=== PATIENT | male | born 1935 | race Caucasian/White ===

== ENCOUNTER 2023-05-10 12:16 | Outpatient (OUT) | payer MEDICARE, OTHER, SELFPAY ==
--- NOTE | 2023-05-10 12:29 | XR_ITS ---
[address] [address] Patient Name: GIOVANNY ANGULO MRN: [id number] date: 1935 Sex: M Assigned Patient Location: RAD Current Patient Location: [facility] Accession/Order Number: [id number] Exam Date: 05/10/2023 12:32 Report Date: 05/10/2023 15:00 At the request of: DAVID CARR Procedure: XR knee LT 4V EXAM: XR knee LT 4V HISTORY: Left knee pain M25.562 COMPARISON: None. 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 No acute fracture or dislocation. Mild soft tissue swelling. XR/XR knee LT 4V IMPRESSION: Moderate degenerative changes as above. Electronically authenticated by: ELIZABETH COLORADO Date: 05/10/2023 15:00
== END 2023-05-10 12:17 | disposition home or self-care (01) ==
LOC: RAD 12:22
PROVIDERS: PCP Family Medicine; Visit Provider Nurse Practitioner
DX: M25.562 Pain in left knee (principal)
CPT/HCPCS: 73564

== ENCOUNTER 2023-10-02 15:48 | Emergency (ER) | payer MEDICARE, OTHER, SELFPAY ==
[2023-10-02 16:03] VITALS: BP 152/77; PULSE 91; RESP 20; TEMP 37.1; O2SAT 97; BMI 23.7
--- NOTE | 2023-10-02 16:07 | XR_ITS ---
The [address] [address] Patient Name: GIOVANNY ANGULO MRN: [id number] date: 1935 Sex: M Assigned Patient Location: ER Current Patient Location: Accession/Order Number: [id number] Exam Date: 10/02/2023 16:32 Report Date: 10/02/2023 20:33 At the request of: TERESITA CONROY Procedure: XR wrist RT min 3V EXAM: XR wrist RT min 3V HISTORY: wrist pain COMPARISON: None. FINDINGS: IMPRESSION: This is a limited study as no PA view was presented. There is a lateral and 2 obliques. No gross visualized displaced fracture on this study. Age-related joint space changes. Electronically authenticated by: JULIET NEVILLE Date: 10/02/2023 20:33
[2023-10-02 16:53] LABS: Basophils Absolute Auto 0.1 10^3/uL (0.0-0.1); Basophils Percent Auto 0.5 % (0.2-2.0); Eosinophils Absolute Auto 0.1 10^3/uL (0.0-0.7); Eosinophils Percent Auto 1.3 % (0.9-7.0); Hematocrit 43.2 % (42.0-54.0); Hemoglobin 14.6 g/dL (14.0-18.0); Immature Granulocytes Abs Auto 0.04 10^3/uL (0.00-0.03); Immature Granulocytes Pct Auto 0.4 % (0.0-0.5); Lymphocytes Absolute Auto 0.9 10^3/uL (1.2-3.8); Lymphocytes Percent Auto 8.9 % (20.5-60.0); Mean Corpuscular HGB Conc 33.8 g/dL (29.9-35.2); Mean Corpuscular Hemoglobin 33.8 pg (25.9-34.0); Mean Platelet Volume 9.8 fL (9.5-13.5); Monocytes Absolute Auto 1.1 10^3/uL (0.3-0.8); Neutrophils Absolute Auto 7.4 10^3/uL (1.4-6.5); Neutrophils Percent Auto 77.9 % (43.0-75.0); Platelet Count 173 10^3/uL (150-450); Red Blood Count 4.32 10^6/uL (4.70-6.10); Red Cell Distribution Width 12.5 % (11.0-15.0); White Blood Count 9.5 10^3/uL (4.0-11.0)
[2023-10-02 17:03] LABS: Erythrocyte Sedimentation Rate 46 mm/hr (<=20)
[2023-10-02 17:09] LABS: C Reactive Protein 1.33 mg/dL (<=0.50); Uric Acid 6.2 mg/dL (3.5-7.2)
--- NOTE | 2023-10-02 17:33 | ED_ITS ---
HPI - Extremity Problem General Chief complaint: Extremity Problem, Nontraumatic Stated complaint: Upper Extremity Pain Time Seen by Provider: 10/02/23 16:07 Source: patient Mode of arrival: walk-in Limitations: no limitations History of Present Illness HPI Narrative: Patient is an 88-year-old male presents to the emergency department for 2-day history of pain in the dorsum of the right wrist. He denies any mechanism of injury or trauma. Pain is worse with flexion and extension of the right wrist and supination. He denies any numbness or tingling. He does not feel the wrist is swollen, there has been no redness or drainage. Related Data Previous Rx's Medication Instructions Recorded methylprednisolone 4 mg tablets in See Rx Instructions .Route 10/02/23 a dose pack (Medrol (Richard)) .COMPLEX #21 ea Allergies Allergy/AdvReac Type Severity Reaction Status Date / Time No Known Drug Allergies Allergy Verified 10/02/23 16:03 Review of Systems ROS Constitutional Denies: fever or chills Ears, nose, mouth, and throat Denies: throat pain Cardiovascular Denies: chest pain Respiratory Denies: shortness of breath Gastrointestinal Denies: nausea or vomiting Musculoskeletal Reports: extremity pain and joint pain; Denies: back pain or neck pain Integumentary/Breast Denies: rash Neurological Denies: headache PFSH PFSH Social History Smoking status: Never smoker Exam Narrative Exam Narrative: Gen.: Awake, alert, in no distress Head: Normocephalic, atraumatic ENT: Moist mucous membranes Respiratory: No respiratory distress Extremities: Moves extremities equally, pain with flexion and extension of the right wrist, diffusely tender of the distal radius, 2+ right radial pulse. 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 Psych: Normal mood and affect Neuro: No focal neuro deficit Skin: Warm, dry, intact Constitutional Vital Signs, click to edit/add: Last Vital Signs Temp 98.8 F 10/02/23 16:03 Pulse 91 H 10/02/23 16:03 Resp 20 10/02/23 16:03 BP 152/77 H 10/02/23 16:03 Pulse Ox 97 10/02/23 16:03 O2 Del Method Room Air 10/02/23 16:03 Course Vital Signs Vital signs: Vital Signs Temperature 98.8 F 10/02/23 16:03 Pulse Rate 91 H 10/02/23 16:03 Respiratory Rate 20 10/02/23 16:03 Blood Pressure 152/77 H 10/02/23 16:03 Pulse Oximetry 97 10/02/23 16:03 Oxygen Delivery Method Room Air 10/02/23 16:03 Temperature 98.8 F 10/02/23 16:03 Pulse Rate 91 H 10/02/23 16:03 Respiratory Rate 20 10/02/23 16:03 Blood Pressure 152/77 H 10/02/23 16:03 Pulse Oximetry 97 10/02/23 16:03 Oxygen Delivery Method Room Air 10/02/23 16:03 MDM - Extremity (Nontraumatic) MDM Narrative Medical decision making narrative: Labs with normal white blood cell count, mildly elevated CRP and sed rates but normal uric acid. Patient treated with steroids for arthritis/tendinitis of the right wrist. He was placed in a right wrist splint and remains neurovascularly intact. X-rays are unremarkable with only arthritic changes noted by attending physician. Rest, ice, elevate. Follow-up with PCP and return to the ER if symptoms change or worsen Lab Data Labs: Lab Results 10/02/23 Range/Units 16:30 WBC 9.5 (4.0-11.0) 10^3/uL RBC 4.32 L (4.70-6.10) 10^6/uL Hgb 14.6 (14.0-18.0) g/dL Hct 43.2 (42.0-54.0) % MCV 100.0 H (80.0-94.0) fL MCH 33.8 (25.9-34.0) pg MCHC 33.8 (29.9-35.2) g/dL RDW 12.5 (11.0-15.0) % Plt Count 173 (150-450) 10^3/uL MPV 9.8 (9.5-13.5) fL Neut % (Auto) 77.9 H (43.0-75.0) % Lymph % (Auto) 8.9 L (20.5-60.0) % Dickinson % (Auto) 11.0 (1.7-12.0) % Eos % (Auto) 1.3 (0.9-7.0) % Baso % (Auto) 0.5 (0.2-2.0) % Neut # (Auto) 7.4 H (1.4-6.5) 10^3/uL Lymph # (Auto) 0.9 L (1.2-3.8) 10^3/uL Dickinson # (Auto) 1.1 H (0.3-0.8) 10^3/uL Eos # (Auto) 0.1 (0.0-0.7) 10^3/uL Baso # (Auto) 0.1 (0.0-0.1) 10^3/uL Abs Immat Gran (auto) 0.04 H (0.00-0.03) 10^3/uL Imm/Tot Granulo (auto) 0.4 (0.0-0.5) % ESR 46 H (<=20) mm/hr Uric Acid 6.2 (3.5-7.2) mg/dL C-Reactive Protein 1.33 H (<=0.50) mg/dL Discharge Plan Discharge Chief Complaint: Extremity Problem, Nontraumatic Clinical Impression: Acute pain of right wrist, Arthritis of right wrist Patient Disposition: Home, Self-Care Time of Disposition Decision: 17:31 Condition: Good Prescriptions / Home Meds: New methylprednisolone [Medrol (Richard)] 4 mg tablets,dose pack See Rx Instructions .ROUTE .COMPLEX Qty: 21 0RF Rx Instructions: Taper as directed Instructions: Osteoarthritis (ED), Arthralgia (ED) Stand Alone Forms: Portal Instructions Referrals: Alexi Ceballos MD [Physician] - 1 week GEORGETTE DAVISON [Primary Care Provider] - 1 week Discharge Date/Time: 10/02/23 17:42
== END 2023-10-02 17:42 | disposition home or self-care (01) ==
PROVIDERS: Physician Assistant; Emergency Provider Emergency Medicine; PCP Family Medicine
DX: M19.031 Primary osteoarthritis, right wrist (principal); M25.531 Pain in right wrist
CPT/HCPCS: 36415; 73110; 84550; 85025; 85652; 86140; 99284

== ENCOUNTER 2023-10-30 10:51 | Emergency (ER) | payer MEDICARE, OTHER, SELFPAY ==
[2023-10-30 10:56] VITALS: BP 146/69; PULSE 84; RESP 16; TEMP 37.4; O2SAT 96; BMI 26.5
--- NOTE | 2023-10-30 11:04 | XR_ITS ---
The [address] [address] Patient Name: GIOVANNY ANGULO MRN: [id number] date: 1935 Sex: M Assigned Patient Location: ED.MAIN Current Patient Location: ED.MAIN Accession/Order Number: [id number] Exam Date: 10/30/2023 11:18 Report Date: 10/30/2023 11:48 At the request of: ADY BREWER Procedure: XR knee LT 4V EXAM: XR knee LT 4V HISTORY: pain COMPARISON: None. TECHNIQUE: 4 views FINDINGS: Severe degenerative changes of the medial compartment of the knee joint. No acute fracture or dislocation. Mild soft tissue swelling. XR/XR knee LT 4V IMPRESSION: Degenerative changes as above. Electronically authenticated by: ELIZABETH COLORADO Date: 10/30/2023 11:48
--- OUTSIDE RECORDS SUMMARY | 2023-10-30 11:27 | XMS_ITS | CCD ---
Author Name Unknown Address [address] [place] [address] Organization [facility] Care Team Providers Care Flight Dispatcher Name Role Phone Sue Dillon Primary Care Provider Dale Mcpherson Attending Provider SARAH KIDD Admitting Unavailable MATRISARAH WITT Attending Unavailable ANGELICA, DR SUE Shell Primary Care Unavailable DILLON, DR SUE Shell Primary Care Unavailable PAY, DR HARP Admitting Unavailable PAY, DR HARP Attending Unavailable ZIEBER, DR ASHLEE Miller Consulting Unavailable PAY, DR HARP Consulting Unavailable Sedrick, Shelley Wisdom Primary Care Unavailable Luanne Paulino Attending Unavailable Luanne Paulino Admitting Unavailable Sedrick, Shelley Rodriguez Attending Unavailable Aidan Lim Attending Unavailable Sedrick, Shelley Rodriguez Attending Unavailable Sedrick, Shelley Rodriguez Attending Unavailable Sedrick, Shelley Rodriguez Admitting Unavailable Sedrick, Shelley Rodriguez Attending Unavailable Unavailable Unavailable Unavailable Problems Active Problems Problem Classification Problem Date Documented Date Episodic/Chronic Complications of surgical procedures or medical care (1 source) Postprocedural hypothyroidism; Translations: [POSTPROCEDURAL HYPOTHYROIDISM] Onset: 11-20-2021 Chronic Other connective tissue disease (4 sources) Other symptoms and signs involving the musculoskeletal system; Translations: [OTH SX AND SYMP INVOLV MUSCULOSKELTAL] Onset: 08-31-2022 Episodic Other nervous system disorders (1 source) Unsteadiness on feet; Translations: [UNSTEADINESS ON FEET] Onset: 09-03-2022 Episodic Spondylosis; intervertebral disc disorders; other back problems (1 source) Radiculopathy, lumbosacral region; Translations: [RADICULOPATHY LUMBOSACRAL REGION] Onset: 09-03-2022 Episodic Unclassified (1 source) Mild cognitive impairment of uncertain or unknown etiology; Translations: [Mild cognitive impairment of uncertain or unknown etiology] Onset: 09-04-2023 Past or Other Problems Problem Classification Problem Date Documented Da te Episodic/Chronic Calculus of urinary tract (1 source) Personal history of urinary calculi; Translations: [PERSONAL HISTORY OF URINARY CALCULI] Onset: 11-20-2021 Episodic E Codes: Fall (1 source) Fall on same level due to ice and snow, initial encounter; Translations: [FALL SAME LEVEL D/T ICE SNOW INIT] Onset: 11-20-2021 Episodic Other aftercare (1 source) Other mcc (current) drug therapy; Translations: [OTH SENIOR CARE CURRENT DRUG THERAPY] Onset: 11-20-2021 Episodic Other circulatory disease (1 source) Personal history of transient ischemic attack (TIA), and cerebral infarction without residual deficits; Translations: [PERS HX TIA AND CI NO RESID DEFICIT] Onset: 11-20-2021 Episodic Other fractures (1 source) Multiple fractures of ribs, left side, initial encounter for closed fracture; Translations: [MX FX RIBS LT SIDE INITIAL CLOS FX] Onset: 11-20-2021 Episodic Other lower respiratory disease (3 sources) Pleurodynia; Translations: [PLEURODYNIA] Onset: 11-17-2021 Episodic Pleurisy; pneumothorax; pulmonary collapse (1 source) Pleural effusion, not elsewhere classified; Translations: [PLEURAL EFFUSION NEC] Onset: 11-20-2021 Episodic Results Test Name Value Interpretation Reference Range Facil ity ED Note-Physicianon 10-09-19 24 ED Note-Physician [id number] 8C#1.00TIFF [facility] RAD - MISCon 10-03-2023 [facility] MIS [id number] 24#1.00TIFF [facility] Pre-Visit Planningon 023 Pre-Visit Planning -- From: Josefa Phillips To: Shelley Goss; Sent: 08/09/2023 14:37:36 EDT Subject: Pre-Visit Planning Due Date/Time: 08/09/2023 14:37:00 EDT Caller Name: GIOVANNY ANGULO; Caller Number: Murray , M , B Henok Rosa. During a pre-visit planning chart review, I noted the following documentation in the medical record: Current Problem List: Chronic kidney disease, unspecified. 04/03/2023 Medicare Wellness Visit: CKD (chronic kidney disease) (N18.9: Chronic kidney disease, unspecified) Patient not currently following with nephrology or taking medications at this time. Reviewed health kidney nutritional handout with importance of preventing strain on the kidneys. Monitor sodium intake daily, educational handout reviewed and provided to assist the patient with a better understanding which types of food, including frozen foods, canned food and fast foods. Work towards a dietary intake with low potassium foods and limit protein intake. Reminded importance to avoid NSAID use and monitor for swelling in the body. Continue to monitor BP with importance of keeping under control. Labs to be completed in office today. Will follow up with PCP to review results. ? Glomerular filtration rate (GFR): =65 on 04/03/2023. *No additional lab results to review in [facility]. Based on your medical judgment, can you please clarify which, if any, of the following conditions are present? I can update the Chronic Problem List with your response if you would like. 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 The fact that a question is asked does not imply that any particular answer is desired or expected. If you have any questions, please feel free to contact me at extension [phone]. Thank you! Josefa Phillips LPN -- From: Shelley Goss To: Josefa Phillips; Sent: 08/15/2023 09:21:27 EST Subject: RE: Pre-Visit Planning Caller Name: GIOVANNY ANGULO; Caller Number: H , M , B chronic kidney disease, stage [address] [place] [address] Family Medicine Office/Clini c Noteon 08-13-2023 Family Medicine Office/Clinic Note HPI Staff Giovanny is an 88 year old male presenting to discuss memory loss Concerns: Pt is concerned his memory is getting worse and gait is unsteady and finding it hard to walk. pt states he feels like his legs are stiff and unable to walk long distances. Pt has done PT a few years ago for this. Pts states he wont' take the memantine. Pt stated he didn't think it would help much but says he will start taking medication. pt states when he lays down right hand tips of fingers and toes feel numb, improve he he begins to move them. 2 weeks ago states every Saturday they go to [employer] and then shop at [employer] and due to his legs he sits by pharmacy to wait for her. He didn't go sit down the went to car and left. Also doesn't remember how to get to daughters school. History of Present Illness pt presents today with c/o lower extremity pain/tingling/weakn ess Review of Systems PHQ Score Initial Depression Screen Score: 0 ROS - Provider Constitutional: no fever, no chills, no sweats, no fatigue Respiratory: no shortness of breath, no cough, no orthopnea, no wheezing. Cardiovascular: no chest pain, no palpitations, no edema. Neurologic: no headache, no dizziness, no numbness, no weakness. lower extremity stiffness Physical Exam Vitals & Measurements HR: 78(Peripheral) RR: 18 BP: 132/86 SpO2: 95% HT: 67 in HT: 170 cm WT: 90.05 kg WT: 198.11 lb BMI: 31.16 General: alert, no acute distress ENMT: oral mucosa moist, no pharyngeal erythema or exudate Cardiovascular: regular rate and rhythm, normal peripheral perfusion Respiratory: Lungs CTA, respirations non labored Extremities: no deformity, no trauma Neurological: oriented x 4, LOC appropriate for age, CN II-XII intact, motor strength equal & normal bilaterally, speech normal Assessment/Plan 1. Lower extremity pain (M79.606: Pain in leg, unspecified) pt c/o RHONA lower leg pain/stiffness/ting ling. states he has a hard time getting around and he doesn't want it to get worse. will order EMG at [facility] in [place]. he has an appointment with them tomorrow to discuss his worsening memory loss. will order gabapentin as well. all questions answered. Will call pt with EMG results. Ordered: gabapentin, 300 mg = 1 cap(s), Oral, TID, # 90 cap(s), Refills(s) 0, [id number], 170, cm, 08/13/23 9:58:00 EST, Height/Length Dosing, 90, kg, 08/13/23 9:58:00 EST, Weight Dosing EMG Bilateral Lower Extremity (BLE) 2. Lumbosacral radiculopathy (M54.17: Radiculopathy, lumbosacral region) see above Ordered: gabapentin, 300 mg = 1 cap(s), Oral, TID, # 90 cap(s), Refills(s) 0, [id number], 170, cm, 08/13/23 9:58:00 EST, Height/Length Dosing, 90, kg, 08/13/23 9:58:00 EST, Weight Dosing EMG Bilateral Lower Extremity (BLE) 3. Mild cognitive impairment (G31.84: Mild cognitive impairment of uncertain or unknown etiology) pt reports that his memory is worsening. he has left her at a store and has forgotten how to get to his daughter's school. he was prescribed namenda but will not take it. he states he is trying to save his one kidney. so he doesn't want to take a bunch of medication Ordered: gabapentin, 300 mg = 1 cap(s), Oral, TID, # 90 cap(s), Refills(s) 0, [id number], 170, cm, 08/13/23 9:58:00 EST, Height/Length Dosing, 90, kg, 08/13/23 9:58:00 EST, Weight Dosing 4. BMI 31.0-31.9,adult (Z68.31: Body mass index [BMI] 31.0-31.9, adult) BMI education complete Ordered: gabapentin, 300 mg = 1 cap(s), Oral, TID, # 90 cap(s), Refills(s) 0, Pharmacy[id number], 170, cm, 08/13/23 9:58:00 EST, Height/Length Dosing, 90, kg, 08/13/23 9:58:00 EST, Weight Dosing EMG Bilateral Lower Extremity (BLE) 5. 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 Medications gabapentin 300 mg Cap, 300 mg= 1 cap(s), Oral, TID levothyroxine 125 mcg (0.125 mg) Tab, 125 mcg= 1 tab(s), Oral, Daily, 3 refills memantine 5 mg Tab, 5 mg= 1 tab(s), Oral, Daily, Not taking: pt states he hasn't been taking medication didn't think it would help Multi Vitamin+, Oral, Daily Allergies No Known Allergies Social History Alcohol Beer, Household alcohol concerns: No., 04/03/2023 Tobacco (more content not included)... [facility] Comment on above: Result Comment: Elec tronically Signed By: Shelley Goss\.br\Date and Time Signed: 08/13/23 10:31 EST Physician Orderon 05-10-2023 Physician Order [id number] 3D#1.00CD:127 [facility] Ambulatory Visit Summaryon 0 04-17-2023 Ambulatory Visit Summary GIOVANNY ANGULO :1935 Visit Date:04/17/2023 Ambulatory Visit Instructions Your Care Team Attending Physician - Shelley Goss Primary Care Physician - Shelley Goss This Is Your Medications List levothyroxine (levothyroxine 125 mcg (0.125 mg) Tab) memantine (memantine 5 mg Tab) multivitamin (Multi Vitamin+) Procedures Performed Cataract extraction, Melanoma, Nephrectomy, Thyroidectomy. Discharge Vitals Heart Rate (Peripheral) 68 Respiratory Rate 18 Blood Pressure 106/62 Height 170 cm Height 67 in Weight 87.4 kg Weight 192.28 lb BMI 30.24 What to do next Scheduled Follow-Up Appointments Saturday 9:30 AM EDT Where: [facility] Family Medicine Office/Clini c Noteon 04-17-2023 Family Medicine Office/Clinic Note HPI Staff Giovanny is a 88 year old male presenting to establish care Establish Care: History: Any previous diagnosis: hypothyroidism, Memmory loss History of seeing any specialist: Neurologist, Cardiology When was your last doctors visit: 11/22/21 Last provider: Dr Dillon Any recent labs: 04/03/23 TSH 2.70 Health Maintenance UTD: Colonoscopy: aged out PSA: unknown Acute: Current issues/complaints: pt here to go over lab work from 04/03/23 Concerns/questions: History of Present Illness pt presents today to establish care and to go over lab work Review of Systems PHQ Score Initial Depression Screen Score: 2 ROS - Provider Constitutional: no fever, no chills, no sweats, no fatigue Respiratory: no shortness of breath, no cough, no orthopnea, no wheezing. Cardiovascular: no chest pain, no palpitations, no edema. Neurologic: no headache, no dizziness, no numbness, no weakness. Physical Exam Vitals & Measurements HR: 68(Peripheral) RR: 18 BP: 106/62 SpO2: 98% HT: 67 in HT: 170 cm WT: 87.4 kg WT: 192.28 lb BMI: 30.24 General: alert, no acute distress ENMT: oral mucosa moist, no pharyngeal erythema or exudate Cardiovascular: regular rate and rhythm, normal peripheral perfusion Respiratory: Lungs CTA, respirations non labored Extremities: no deformity, no trauma Neurological: oriented x 4, LOC appropriate for age, CN II-XII intact, motor strength equal & normal bilaterally, speech normal Assessment/Plan 1. Hypothyroid (E03.9: Hypothyroidism, unspecified) pt presents today to establish care and go over lab work. All labs are WNL. physical exam WNL. all questions answered. RTC as needed 2. BMI 30.0-30.9,adult (Z68.30: Body mass index [BMI] 30.0-30.9, adult) bmi education complete 3. 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 Medications levothyroxine 125 mcg (0.125 mg) Tab, 62.5 mcg= 0.5 tab(s), Oral, BID levothyroxine 125 mcg (0.125 mg) Tab, 125 mcg= 1 tab(s), Oral, Daily, 3 refills memantine 5 mg Tab, 5 mg= 1 tab(s), Oral, Daily Multi Vitamin+, Oral, Daily Allergies No Known Allergies Social History Alcohol Beer, Household alcohol concerns: No., 04/03/2023 Tobacco Never (less than 100 in lifetime) Tobacco Use:. Never Smokeless Tobacco Use:. Household tobacco concerns: No., 04/17/2023 Family History Primary malignant neoplasm of lung: Father. Immunizations Vaccine Date Status Comments influenza virus vaccine, inactivated 08/14/2022 Recorded SARS-CoV-2 (COVID-19) [id number] 08/14/2022 Recorded 2023-04-03: TPV80 influenza virus vaccine, inactivated 08/25/2021 Recorded SARS-CoV-2 (COVID-19) mRNA BNT-162b2 vax 08/25/2021 Recorded SARS-CoV-2 (COVID-19) mRNA-1273 vaccine 12/06/2020 Recorded SARS-CoV-2 (COVID-19) mRNA-1273 vaccine 11/08/2020 Recorded [facility] Comment on above: Result Comment: Elec tronically Signed By: Shelley Goss\.br\Date and Time Signed: 04/17/23 13:53 EDT Auth for Release of Medical Recordson 04-15-2023 Auth for Release of Medical Records [id number] 4A#1.00CD:127 Normal [facility] Ambulatory Visit Summaryon 0 04-03-2023 Ambulatory Visit Summary GIOVANNY ANGULO :1935 Visit Date:04/03/2023 Ambulatory Visit Instructions Your Diagnosis Annual visit for general adult medical examination without abnormal findings Hypothyroidism, unspecified Screening for ischemic heart disease CKD (chronic kidney disease) Advanced directives, counseling/discussi on TGA (transient global amnesia) Class 1 obesity due to excess calories with body mass index (BMI) of 30.0 to 30.9 in adult Body mass index [BMI] 30.0-30.9, adult Your Care Team Attending Physician - Raphael VILA, Aidan Barclay Primary Care Physician - NONE, XXXX This Is Your Medications List levothyroxine (levothyroxine 125 mcg (0.125 mg) Tab) multivitamin (Multi Vitamin+) Procedures Performed Cataract extraction, Melanoma, Nephrectomy, Thyroidectomy. Discharge Vitals Heart Rate (Peripheral) 71 Blood Pressure 122/78 Height 170 cm Height 67 in Weight 87.2 kg Weight 191.84 lb BMI 30.17 What to do next Scheduled Follow-Up Appointments Saturday 9:20 AM EDT With: Shelley Goss Where: [facility] Normal [address] [place] [phone] \.br\ Medications\.br\ What How Much When Instructions\.br\ Unchanged levothyroxine (levothyroxine 125 mcg (0.125 mg) Tab) 0.5 Tablets By Mouth 2 times a day\.br\ Unchanged multivitamin (Multi Vitamin+) By Mouth Every day\.br\ Allergies\.br\ No Known Allergies\.br\ Problems\.br\ Ongoing - Any problem that you are currently receiving treatment for.\.br\ Aortic regurgitation\.br\ CKD (chronic kidney disease)\.br\ Hemangioma\.br\ History of medullary carcinoma of thyroid\.br\ History of renal cell cancer\.br\ Hypothyroid\.br\ Nephrolithiasis\.br \ TGA (transient global amnesia)\.br\ Historical - Any problem that you are no longer receiving treatment for.\.br\ Thyroid cancer\.br\ TIA\.br\ Education Materials\.br\ Fall Prevention in the Home, Adult\.br\ Falls can cause injuries and affect people of all ages. There are many simple things that you can do to make your home safe and to help prevent falls. Ask for help when making these changes, if needed.\.br\ What actions can I take to prevent falls?\.br\ General instructions\.br\ ? \.br\ Use good lighting in all rooms. Replace any light bulbs that burn out, turn on lights if it is dark, and use night-lights.\.br\ ? \.br\ Place frequently used items in [id number] places. Lower the shelves around your home if necessary.\.br\ ? \.br\ Set up furniture so that there are clear paths around it. Avoid moving your furniture around.\.br\ ? \.br\ Remove throw rugs and other tripping hazards from the floor.\.br\ ? \.br\ Avoid walking on wet floors.\.br\ ? \.br\ Fix any uneven floor surfaces.\.br\ ? \.br\ Add color or contrast paint or tape to grab bars and handrails in your home. Place contrasting color strips on the first and last steps of staircases.\.br\ ? \.br\ When you use a stepladder, make sure that it is completely opened and that the sides and supports are firmly locked. Have someone hold the ladder while you are using it. Do not climb a closed stepladder.\.br\ ? \.br\ Know where your pets are when moving through your home.\.br\ What can I do in the bathroom?\.br\ \.br\ \.br\ ? \.br\ Keep the floor dry. Immediately clean up any water that is on the floor.\.br\ ? \.br\ Remove soap buildup in the tub or shower regularly.\.br\ ? \.br\ Use nonskid mats or decals on the floor of the tub or shower.\.br\ ? \.br\ Attach bath mats securely with double-sided, nonslip rug tape.\.br\ ? \.br\ If you need to sit down while you are in the shower, use a plastic, nonslip stool.\.br\ ? \.br\ Install grab bars by the toilet and in the tub and shower. Do not use towel bars as grab bars.\.br\ What can I do in the bedroom?\.br\ ? \.br\ Make sure that a bedside light is easy to reach.\.br\ ? \.br\ Do not use oversized bedding that reaches the floor.\.br\ ? \.br\ Have a firm chair that has side arms to use for getting dressed.\.br\ What can I do in the kitchen?\.br\ ? \.br\ Clean up any spills right away.\.br\ ? \.br\ If you need to reach for something above you, use a sturdy step stool that has a grab bar.\.br\ ? \.br\ Keep electrical cables out of the way.\.br\ ? \.br\ Do not use floor danish or wax that makes floors slippery. If you must use wax, make sure that it is non-skid floor wax.\.br\ What can I do with my stairs?\.br\ ? \.br\ Do not leave any items on the stairs.\.br\ ? \.br\ Make sure that you have a light switch at the top and the bottom of the stairs. Have them installed if you do not have them.\.br\ ? \.br\ Make sure that there are handrails on both sides of the stairs. Fix handrails that are broken or loose. Make sure that handrails are as long as the staircases.\.br\ ? \.br\ Install non-slip stair treads on all stairs in your home.\.br\ ? \.br\ Avoid having throw rugs at the top or bottom of stairs, or secure the rugs with carpet tape to prevent them from moving.\.br\ ? \.br\ Choose a carpet design that does not hide the edge of steps on the stairs.\.br\ ? \.br\ Check any carpeting to make sure that it is firmly attached to the stairs. Fix any carpet that is loose or worn.\.br\ What can I do on the outside of my home?\.br\ ? \.br\ Use bright outdoor lighting.\.br\ ? \.br\ Regularly repair the edges of walkways and driveways and fix any cracks.\.br\ ? \.br\ Remove high doorway thresholds.\.br\ ? \.br\ Trim any shrubbery on the main path into your home.\.br\ ? \.br\ Regularly check that handrails are securely fastened and in good repair. Both sides of all steps should have handrails.\.br\ ? \.br\ Install guardrails along the edges of any raised decks or porches.\.br\ ? \.br\ Clear walkways of debris and clutter, including tools and rocks.\.br\ ? \.br\ Have leaves, snow, and ice cleared regularly.\.br\ ? \.br\ Use sand or salt on walkways during winter months.\.br\ ? \.br\ In the garage, clean up any spills right away, including grease or oil spills.\.br\ What other actions can I take?\.br\ ? \.br\ Wear closed-toe shoes that fit well and support your feet. Wear shoes that have rubber soles or low heels.\.br\ ? \.br\ Use mobility aids as needed, such as canes, walkers, scooters, and crutches.\.br\ ? \.br\ Review your medicines with your health care provider. Some medicines can cause dizziness or changes in blood pressure, which increase your risk of falling.\.br\ Talk with your health care provider about other ways that you can decrease your risk of falls. This may include working with a physical therapist or net trainer to improve your strength, balance, and endurance.\.br\ Where to find more information\.br\ ? \.br\ Centers for Disease Control and Prevention, [place]: www.cdc.gov\.br\ ? \.br\ National [place] on Aging: www.deidra.nih.gov\.br \ Contact a health care provider if:\.br\ ? \.br\ You are afraid of falling at home.\.br\ ? \.br\ You feel weak, drowsy, or dizzy at home.\.br\ ? \.br\ You fall at home.\.br\ Summary\.br\ ? \.br\ There are many simple things that you can do to make your home safe and to help prevent falls.\.br\ ? \.br\ Ways to make your home safe include removing tripping hazards and installing grab bars in the bathroom.\.br\ ? \.br\ Ask for help when making these changes in your home.\.br\ This information is not intended to replace advice given to you by your health care provider. Make sure you discuss any questions you have with your health care provider.\.br\ Document Revised: 06/25/2022 Document Reviewed: 04/26/2021 [employer] Patient Education ? 2022 [employer].\.br\ Hypothyroidism\.br\ \.br\ Hypothyroidism is when the thyroid gland does not make enough of certain hormones. This is called an underactive thyroid. The thyroid gland is a small gland located in the lower front part of the neck, just in front of the windpipe (trachea). This gland makes hormones that help control how the body uses food for energy (metabolism) as well as how the heart and brain function. These hormones also play a role in keeping your bones strong. When the thyroid is underactive, it produces too little of the hormones thyroxine (T4) and triiodothyronine (T3).\.br\ What are the causes?\.br\ This condition may be caused by:\.br\ ? \.br\ Jose Maria's disease. This is a disease in which the body's disease-fighting system (immune system) chavez [facility] Auth for Release of Medical Recordson 04-03-2023 Auth for Release of Medical Records [id number] 8D#[id number]:127 Normal [facility] CMPon 04-03-2023 Albumin [Mass/Vol] 3.5 g/dL Normal 3.3-5.0 [facility] Comment on above: Performed By: #### 1 [id number], [id number], [id number], [id number] ####[facility] [address] [place] [address] Albumin/Globulin (S) [Mass conc ratio] 1.0 Low 1.1-2.2 [facility] Comment on above: Performed By: #### 1 [id number], [id number], [id number], [id number] ####[address] [place] [address] ALP [Catalytic activity/Vol] 55 Int._Unit/L Normal 21-98 [facility] Comment on above: Performed By: #### 1 [id number], 2294180, [id number], [id number] ####[address] [place] [address] ALT No additional P-5'-P [Catalytic activity/Vol] 24 Int._Unit/L Normal 6-46 [facility] Comment on above: Performed By: #### 1 [id number], 7681307, [id number], [id number] ####[facility] [address] [place] [address] Anion gap [Moles/Vol] 12 mmol/L Normal 6-16 [facility] Comment on above: Performed By: #### 1 [id number], 5766725, 37906125, [id number] ####[facility] [address] [place] [address] AST [Catalytic activity/Vol] 28 Int._Unit/L Normal 5-43 [facility] Comment on above: Performed By: #### 1 9989904, 0109580, 16834367, 7660137 ####[facility] [address] [place] [address] Bilirubin [Mass/Vol] 0.6 mg/dL Normal 0.0-1.1 [facility] Comment on above: Performed By: #### 1 9721078, 1330996, 21338142, 1885287 ####[facility] [address] [place] [address] Calcium [Mass/Vol] 9.4 mg/dL Normal 8.9-11.1 [facility] Comment on above: Performed By: #### 1 6602476, 0732417, 20293618, 2493717 ####[facility] [address] [place] [address] Chloride [Moles/Vol] 107 mmol/L Normal 101-111 [facility] Comment on above: Performed By: #### 1 7597934, 3207445, 08823457, 8602585 ####[facility] [address] [place] [address] CO2 [Moles/Vol] 23 mmol/L Normal 21-31 [facility] Comment on above: Performed By: #### 1 [id number], 7789485, 12682312, 5901663 ####[facility] [address] [place] [address] Creatinine [Mass/Vol] 1.1 mg/dL Normal 0.5-1.3 [facility] Comment on above: Performed By: #### 1 4205316, 8922443, 05602117, 3558188 ####[facility] [address] [place] [address] Globulin (S) [Mass/Vol] 3.4 g/dL Normal 1.4-4.0 [facility] Comment on above: Performed By: #### 1 6369794, 4359586, 20427100, 0740233 ####[facility] [address] [place] [address] Glucose [Mass/Vol] 91 mg/dL Normal 55-199 [facility] Comment on above: Result Comment: If t his glucose result represents a fasting glucose, interpretation should refer to the following reference range: 55-99 mg/dL Performed By: #### 1 [id number], 2041331, 41382269, 9117647 ####[facility] [address] [place] [address] Potassium [Moles/Vol] 4.8 mmol/L Normal 3.5-5.3 [facility] Comment on above: Performed By: #### 1 6084525, 7115351, 20455177, 0683364 ####[facility] [address] [place] [address] Protein [Mass/Vol] 6.9 g/dL Normal 6.0-7.8 [facility] Comment on above: Performed By: #### 1 8559097, 1842564, 26140955, 7379533 ####[facility] [address] [place] [address] Sodium [Moles/Vol] 137 mmol/L Normal 135-145 [facility] Comment on above: Performed By: #### 1 3607452, 4375902, 92521387, 9997064 ####[facility] [address] [place] [address] Urea nitrogen [Mass/Vol] 20 mg/dL Normal 5-21 [facility] Comment on above: Performed By: #### 1 2594986, 8144534, 24369951, 9437194 ####[facility] [address] [place] [address] Urea nitrogen/Creatini ne [Mass ratio] 18 No Units Normal 10-20 [facility] Comment on above: Performed By: #### 1 4501590, 5207548, 27994988, 5489536 ####[facility] [address] [place] [address] Family Medicine Office/Clini c Noteon 04-03-2023 Family Medicine Office/Clinic Note Chief Complaint Medicare Wellness Visit Subsequent Review of Systems PHQ Score Initial Depression Screen Score: 2 Physical Exam Vitals & Measurements HR: 71(Peripheral) BP: 122/78 SpO2: 94% HT: 170 cm HT: 67 in WT: 87.2 kg WT: 191.84 lb BMI: 30.17 Assessment/Plan 1. Annual visit for general adult medical examination without abnormal findings (Z00.00: Encounter for general adult medical examination without abnormal findings) The patient is accompanied by spouse. Patient was given a customized and personalized print out of all the current AHRQ USPSTF?s recommendations for preventative services and all current CDC recommended immunizations, relevant risk recommendations and the following patient brochures were given. Reviewed Medicare preventative services checklist. CDC-Falls Prevention and home safety screening reviewed. Patient denies any falls in last 12 months, voices no worry about falling, exhibits no problems with sitting, standing, or ambulation. Pt voices understanding with keeping walk way area free of clutter to prevent tripping and/or falling. [place] Advance Directives reviewed, see below #5. Patient denies any problems with ADL?s and Instrumental ADL?s. Cognitive screening completed with memory and clock face drawing. Immunization Record reviewed with the patient. Discussed Shingrix vaccine with educational handout and availability. Pneumococcal vaccines recommendations discussed. COVID vaccines have been administered, with 2 boosters, immunization record is up to date. Allergies and medications reviewed and up to date. Patient denies concerns with taking medication as prescribed, reviewed OTC medications with patient, medication list up to date. Blood tests were reviewed: Discussed what tests need to be updated. Labs were ordered, will have completed in office today. Colonoscopy last completed with Dr. Walker. Records have been requested, no need for further screening. Reviewed pain symptoms with patient: states no pain. Reviewed all outside providers that patient follows. Last visit summary notes available in chart and/or have been requested. Follow up scheduled, 04/16/2023 AWV has been scheduled, 2024 Medicare provides yearly screening for alcohol and depression concerns. This is completed during our Medicare Wellness visit for those who do not have a current diagnosis of depression or concerns with alcohol use. I spent a total of 17 minutes on this date of service which included preparing to see the patient, face to face patient care, completing clinical documentation, obtaining and/or reviewing separately obtained history, counseling and educating the patient with handouts. Explanations were provided with reviewing questionnaires. AUDIT risk assessment screening completed, risk score 1 with patient denying concerns with use. Completed PHQ-2 risk assessment for depression with risk score 2,negative findings. Patient has been reminded to notify the provider if there would be a change or concerns with symptoms with fear, unable to sleep, worrying too much or feeling down and/or sad with lost of interest with daily activities. Will continue to monitor with screening yearly during Medicare wellness visits. 2. Hypothyroidism, unspecified (E03.9: Hypothyroidism, unspecified) Patient taking Levothyroxine 125 mcg daily as directed. Denies concerns with cold intolerance, or change in appetite, constipation, slow growing hair or hair thinning. Follows up with PCP during office visits with blood work and medication management. Labs to be completed in office today, will follow up with PCP to review results. 3. Screening for ischemic heart disease (Z13.6: Encounter for screening for cardiovascular disorders) Patient not currently taking cholesterol medication. Reviewed healthy lifestyle with low fat diet and exercise regimen. When you are overweight our body produces more lipids. Risk also increases with family history of hyperlipidemia and with monitoring alcohol use and avoid smoking. Patient voices understanding with importance of monitoring dietary intake to reduce risk factors associated with CVA. Lipid screening to be completed in office today. Patient will follow up with PCP to review results. 4. CKD (chronic kidney disease) (N18.9: Chronic kidney disease, unspecified) Patient not currently following with nephrology or taking medications at this time. Reviewed health kidney nutritional handout with importance of preventing strain on the kidneys. Monitor sodium intake daily, educational handout reviewed and provided to assist the patient with a better understanding which types of food, including frozen foods, canned food and fast foods. Work towards a dietary intake with low potassium foods and limit protein intake. Reminded importance to avoid NSAID use and monitor for swelling in the body. Continue to monitor BP with importance of keeping under control. Labs to be completed in office today. Will follow up with PCP to rev (more content not included)... Normal [facility] Comment on above: Result Comment: Elec tronically Signed By: Shelley Goss\.br\Date and Time Signed: 04/03/23 11:08 EDT\.br\Electronically Co-Signed By: Brennon Crystal.br\Date and Time Co-Signed: 04/03/23 10:50 EDT Lipid Panelon 04-03-2023 Cholesterol [Mass/Vol] 156 mg/dL Normal 120-200 [facility] Comment on above: Performed By: #### 1 [id number], 6477444, 69864661, 0583866 ####[facility] [address] [place] [address] Cholesterol in HDL [Mass/Vol] 32 mg/dL Invalid Interpretation Code [facility] Comment on above: Result Comment: HDL > or equal to 60 mg/dL: Low cardiovascular risk HDL < 40 mg/dL : High cardiovascular risk Performed By: #### 1 [id number], 1604225, 31137522, 4589039 ####[facility] [address] [place] [address] Cholesterol in LDL [Mass/Vol] 95 mg/dL Normal <=129 [facility] Comment on above: Performed By: #### 1 [id number], 7941846, 88645860, 7165000 ####[facility] [address] [place] [address] Cholesterol in VLDL [Mass/Vol] 21 mg/dL Normal 7-40 [facility] Comment on above: Performed By: #### 1 [id number], 9888993, 67612613, 0065837 ####[facility] [address] [place] [address] Triglyceride [Mass/Vol] 103 mg/dL Normal <=149 [facility] Comment on above: Performed By: #### 1 [id number], 6390130, 64984795, 1449239 ####[facility] [address] [place] [address] Patient Educationon 04-03-20 23 Patient Education Caregiving Fall Prevention in the Home, Adult Falls can cause injuries and affect people of all ages. There are many simple things that you can do to make your home safe and to help prevent falls. Ask for help when making these changes, if needed. What actions can I take to prevent falls? General instructions ? Use good lighting in all rooms. Replace any light bulbs that burn out, turn on lights if it is dark, and use night-lights. ? Place frequently used items in qabp-zu-egwug places. Lower the shelves around your home if necessary. ? Set up furniture so that there are clear paths around it. Avoid moving your furniture around. ? Remove throw rugs and other tripping hazards from the floor. ? Avoid walking on wet floors. ? Fix any uneven floor surfaces. ? Add color or contrast paint or tape to grab bars and handrails in your home. Place contrasting color strips on the first and last steps of staircases. ? When you use a stepladder, make sure that it is completely opened and that the sides and supports are firmly locked. Have someone hold the ladder while you are using it. Do not climb a closed stepladder. ? Know where your pets are when moving through your home. What can I do in the bathroom? ? Keep the floor dry. Immediately clean up any water that is on the floor. ? Remove soap buildup in the tub or shower regularly. ? Use nonskid mats or decals on the floor of the tub or shower. ? Attach bath mats securely with double-sided, nonslip rug tape. ? If you need to sit down while you are in the shower, use a plastic, nonslip stool. ? Install grab bars by the toilet and in the tub and shower. Do not use towel bars as grab bars. What can I do in the bedroom? ? Make sure that a bedside light is easy to reach. ? Do not use oversized bedding that reaches the floor. ? Have a firm chair that has side arms to use for getting dressed. What can I do in the kitchen? ? Clean up any spills right away. ? If you need to reach for something above you, use a sturdy step stool that has a grab bar. ? Keep electrical cables out of the way. ? Do not use floor danish or wax that makes floors slippery. If you must use wax, make sure that it is non-skid floor wax. What can I do with my stairs? ? Do not leave any items on the stairs. ? Make sure that you have a light switch at the top and the bottom of the stairs. Have them installed if you do not have them. ? Make sure that there are handrails on both sides of the stairs. Fix handrails that are broken or loose. Make sure that handrails are as long as the staircases. ? Install non-slip stair treads on all stairs in your home. ? Avoid having throw rugs at the top or bottom of stairs, or secure the rugs with carpet tape to prevent them from moving. ? Choose a carpet design that does not hide the edge of steps on the stairs. ? Check any carpeting to make sure that it is firmly attached to the stairs. Fix any carpet that is loose or worn. What can I do on the outside of my home? ? Use bright outdoor lighting. ? Regularly repair the edges of walkways and driveways and fix any cracks. ? Remove high doorway thresholds. ? Trim any shrubbery on the main path into your home. ? Regularly check that handrails are securely fastened and in good repair. Both sides of all steps should have handrails. ? Install guardrails along the edges of any raised decks or porches. ? Clear walkways of debris and clutter, including tools and rocks. ? Have leaves, snow, and ice cleared regularly. ? Use sand or salt on walkways during winter months. ? In the garage, clean up any spills right away, including grease or oil spills. What other actions can I take? ? Wear closed-toe shoes that fit well and support your feet. Wear shoes that have rubber soles or low heels. ? Use mobility aids as needed, such as canes, walkers, scooters, and crutches. ? Review your medicines with your health care provider. Some medicines can cause dizziness or changes in blood pressure, which increase your risk of falling. Talk with your health care provider about other ways that you can decrease your risk of falls. This may include working with a physical therapist or net trainer to improve your strength, balance, and endurance. Where to find more information ? Centers for Disease Control and Prevention, STEADI: www.cdc.gov ? National [place] on Aging: www.deidra.nih.gov Contact a health care provider if: ? You are afraid of falling at home. ? You feel weak, drowsy, or dizzy at home. ? You fall at home. Summary ? There are many simple things that you can do to make your home safe and to help prevent falls. ? Ways to make your home safe include removing tripping hazards and installing grab bars in the bathroom. ? Ask for help when making these changes in your home. This information is not intended to replace advice given to you by your health ca (more content not included)... Normal [facility] Screenson 04-03-2023 Screens [id number] 55#1.00CD:127 Normal [facility] TSH With T4fr Reflexon 04-03 TSH Qn 2.70 m[IU]/L Normal 0.34-5.60 [facility] Comment on above: Performed By: #### 1 [id number], 5699099, [id number], 8389223 ####[facility] [address] [place] [address] eGFRon 04-03-2023 GFR/1.73 sq M.predicted among non-blacks MDRD (S/P/Bld) [Vol rate/Area] 65 mL/min/1.73 m2 Normal >=59 [facility] Comment on above: Order Comment: Order added by Discern Expert. Result Comment: K[place] Chi[place] brannon kidney disease could be indicated at eGFR's of less than 60 mL/min/1.73m2. Kidney failure is indicated at less than 15 mL/min/1.73m2. Performed By: #### 1 [id number], 0462521, 32085870, 4840509 ####[facility] [address] [place] [address] Consultation Noteon 12-26-19 Consultation Note [id number] A2#1.00CD:127 Normal [facility] XR RIBS LT PA Meghan 2 XR RIBS LT PA CH EXAMINATION: XR RIBS LT PA CH HISTORY: Unspecified fall ; left lateral rib pain COMPARISON: No relevant comparison available. FINDINGS: LUNGS: No significant pulmonary parenchymal abnormalities. PLEURA: Focal area of mild pleural thickening overlying the lateral left chest wall rib fractures. Mild blunting of the left lateral costophrenic angle. No pneumothorax. MEDIASTINUM: No visible mass or adenopathy. CARDIAC: No cardiomegaly or cardiac silhouette abnormality. RIBS: Mildly displaced fractures of the anterior lateral left fifth, sixth, seventh ribs. OTHER: Negative. IMPRESSION: 1. Minimally displaced acute left rib fractures (fifth, sixth, seventh ribs). 2. Suspect tiny left pleural effusion. No pneumothorax. Electronically authenticated by: ASHLEE MIXON Date: 2021-11-17 10:18 Normal [facility] Encounters Encounter Date Encounter Type Care Provider Facility Start: 09-04-2023 ambulatory Shelley Alyx Sedrick Facili ty:[facility] Start: 08-13-2023 End: 08-14-2023 ambulatory [facility] Start: 04-17-2023 End: 04-18-2023 ambulatory [facility] L [facility] Start: 04-03-2023 End: 04-04-2023 ambulatory Sehlley L Sedrick Facility:[facility] Start: 12-24-2022 ambulatory [facility] Start: 08-31-2022 End: 10-05-2022 ambulatory SARAH MARTI Facility: Start: 11-17-2021 End: 11-17-[address] SUE DILLON Facility:[facility] Start: 03-22-2020 End: 03-22-2020 Patient encounter procedure Sue Dillon [facility] [address] Plan of Treatment Date Care Activity Detail Author Start: 2024 ambulatory Ambulatory Facility:[facility] Payers Date Payer Category Payer Self-pay [id number] 18ed 2023 [employer] ( and others) [id number] 1959 [employer] ( and others) [id number] 1959 Medicare [id number] 1935 Unknown [id number] [id number] 1935 Unknown [id number] 1935 Unknown [id number] 1935 Unknown [id number] [id number] 1935 Unknown [id number] [id number] 1935 Unknown [id number] [id number] 1935 Unknown [id number] [id number] Medicare Self Pay [id number] Unknown [id number] Social History Date Type Detail Facility Tobacco smoking stat [facility] Unknown if ever smoked [facility] Start: 1935 Sex Assigned At Male F [facility] Goals Date Patient Goal Desired Activity /State Advance Directives No Advanced Directives Records Found Advance Directive Response Recorded Date/ Time Advance Directives No March 16 3:08pm Chief Complaint and Reason for Visit Chief Complaint Lumbar Radiculopathy Assessments No Assessments Information Available Summary Purpose Family History No Family History Records FoundNo Family History Records FoundNo Family History Records Found Additional Source Comments (unrecognized sect ion and content) No Status Records FoundNo Status Records FoundNo Status Records Found INFORMATION SOURCE (unrecogn ized section and content) DATE CREATED AUTHOR [facility]/06/2022 [facility] DATE CREATED AUTHOR AUTHOR'S ORGANIZ ATION 09/06/2023 [facility] DATE CREATED AUTHOR AUTHOR'S ORGANIZ ATION 10/10/[address] [facility] FOR RECORDS PERTAINING TO PATIENTS WHO ARE OR HAVE BEEN ENROLLED IN A CHEMICAL DEPENDENCY/SUBSTANCEABUSE PROGRAM, SOME INFORMATION MAY BE OMITTED. This clinical summary was aggregated from multiple sources. Caution should be exercised in using it in the provision of clinical care. This summary normalizes information from multiple sources, and as a consequence, information in this document may materially change the coding, format and clinical context of patient data. In addition, data may be omitted in some cases. CLINICAL DECISIONS SHOULD BE BASED ON THE PRIMARY CLINICAL RECORDS. [facility]. provides no warranty or guarantee of the accuracy or completeness of information in this document.
[2023-10-30] MEDS: KETOROLAC TROMETHAMINE 30 MG/ML VIAL IM (11:28)
[2023-10-30] MEDS: PREDNISONE 20 MG TABLET 40 MG PO (11:28)
[2023-10-30 12:39] LABS: Hematocrit 39.8 % (42.0-54.0); Hemoglobin 13.5 g/dL (14.0-18.0); Mean Corpuscular HGB Conc 33.9 g/dL (29.9-35.2); Mean Corpuscular Hemoglobin 33.9 pg (25.9-34.0); Mean Platelet Volume 9.6 fL (9.5-13.5); Platelet Count 179 10^3/uL (150-450); Red Blood Count 3.98 10^6/uL (4.70-6.10); Red Cell Distribution Width 12.6 % (11.0-15.0); White Blood Count 10.1 10^3/uL (4.0-11.0)
[2023-10-30 12:55] LABS: Alanine Aminotransferase 21 U/L (16-63); Albumin Globulin Ratio 0.7; Albumin Level 2.8 g/dL (3.4-5.0); Alkaline Phosphatase 78 U/L (46-116); Anion Gap 10.8; Aspartate Amino Transferase 21 U/L (15-37); BUN Creatinine Ratio 23.3; Bilirubin Total 1.7 mg/dL (0.2-1.0); Calcium 9.2 mg/dL (8.5-10.1); Carbon Dioxide 25.4 mmol/L (21.0-32.0); Chloride 103 mmol/L (98-107); Estimated GFR (African America >60 (>=60); Estimated GFR (Non-African Ame 57 (>=60); Globulin 4.2 g/dL; Glucose 91 mg/dL (74-106); Potassium 4.2 mmol/L (3.5-5.1); Sodium 135 mmol/L (136-145)
[2023-10-30 12:59] LABS: Monocytes Absolute Manual 1.61 10^3/uL (0.30-0.80); Segmented Neut Absolute Manual 7.87 10^3/uL (1.4-6.5)
--- NOTE | 2023-10-30 13:28 | ED.EXTPRO1 ---
HPI - Extremity Problem General Chief complaint: Extremity Problem, Nontraumatic Stated complaint: hip pain, left Time Seen by Provider: 10/30/23 11:00 Source: patient Mode of arrival: ambulance Limitations: no limitations History of Present Illness HPI Narrative: The patient presented to us with a left knee pain that started yesterday he denies any fall or trauma but he mentioned he has not been able to put weight on his left knee. No other complaints Related Data Previous Rx's Medication Instructions Recorded methylprednisolone 4 mg tablets in See Rx Instructions .Route 10/02/23 a dose pack (Medrol (Richard)) .COMPLEX #21 ea acetaminophen 650 mg 650 mg PO Q8H PRN pain #20 tabs 10/30/23 tablet,extended release (Tylenol 8 Hour) prednisone 20 mg tablet 40 mg (2 x 20 mg) PO DAILY 5 days 10/30/23 #10 tabs Allergies Allergy/AdvReac Type Severity Reaction Status Date / Time No Known Drug Allergies Allergy Verified 10/30/23 10:56 Review of Systems ROS Status of ROS 10 or more systems reviewed and unremarkable except as noted in history and below PFSH [facility] Social History Smoking status: Never smoker Exam Narrative Exam Narrative: Nurses notes and vital signs reviewed and patient is not hypoxic. General: Well-appearing and in no apparent distress. Skin: Warm, dry, no pallor noted. No rash. Head: Normocephalic, atraumatic. Neck: Supple, non-tender. Eye: Pupils are equal, round and EOMI. No scleral icterus. Ears, Nose, Mouth, and Throat: TM are clear, no nasal mucosal hypertrophy. Oral mucosa is moist, no posterior oropharynx erythema, uvula is mid-line Cardiovascular: Regular Rate and Rhythm without murmur, gallop or rub. Respiratory: No accessory muscle use or respiratory distress. Lungs are clear to auscultation, no wheezing, rales or rhonchi Chest Wall: no tenderness Back: No midline thoracic or lumbar vertebral tenderness. No CVA tenderness Musculoskeletal: Significant edema of the left knee noted with effusion there is no redness hotness but there is tenderness on palpation. GI: Abdomen is soft, non-distended. Normal bowel sounds. No masses appreciated. No tenderness to palpation. No rebound, guarding, or rigidity noted. Neurological: A&O x4. No cranial nerve dysfunction observed. . Moves all extremities. Sensation intact. Psychiatric: Cooperative and interactive. Normal mood and affect. Constitutional Vital Signs, click to edit/add: Last Vital Signs Temp 99.3 F 10/30/23 10:56 Pulse 84 10/30/23 10:56 Resp 16 10/30/23 10:56 BP 146/69 H 10/30/23 10:56 Pulse Ox 96 10/30/23 10:56 O2 Del Method Room Air 10/30/23 10:56 Course Vital Signs Vital signs: Vital Signs Temperature 99.3 F 10/30/23 10:56 Pulse Rate 84 10/30/23 10:56 Respiratory Rate 16 10/30/23 10:56 Blood Pressure 146/69 H 10/30/23 10:56 Pulse Oximetry 96 10/30/23 10:56 Oxygen Delivery Method Room Air 10/30/23 10:56 Temperature 99.3 F 10/30/23 10:56 Pulse Rate 84 10/30/23 10:56 Respiratory Rate 16 10/30/23 10:56 Blood Pressure 146/69 H 10/30/23 10:56 Pulse Oximetry 96 10/30/23 10:56 Oxygen Delivery Method Room Air 10/30/23 10:56 MDM - Extremity (Nontraumatic) MDM Narrative Medical decision making narrative: The patient CBC and chemistry obtained showing no acute pathology and the x-ray of the left knee also showed no acute pathology except for osteoarthritis Right now the patient was treated with Toradol and prednisone in the ER for inflammation after which she is feeling better Initially the blood workup was done because there was a concern that the patient have no enough care but when his presented to the bedside she mentioned that he will be using the walker right now while he is having knee pain and the patient is agreeable I did offer them that in case he needs more care he can be admitted but the patient mentioned that he is good to go home The patient is to follow up with primary care physician in next 2-3 days or to return to the emergency department should any of the signs or symptoms worsen or new symptoms develop. The patient agrees with the following Diagnosis and Treatment plan and the patient will be discharged home.. Lab Data Labs: Lab Results 10/30/23 Range/Units 12:30 WBC 10.1 (4.0-11.0) 10^3/uL RBC 3.98 L (4.70-6.10) 10^6/uL Hgb 13.5 L (14.0-18.0) g/dL Hct 39.8 L (42.0-54.0) % MCV 100.0 H (80.0-94.0) fL MCH 33.9 (25.9-34.0) pg MCHC 33.9 (29.9-35.2) g/dL RDW 12.6 (11.0-15.0) % Plt Count 179 (150-450) 10^3/uL MPV 9.6 (9.5-13.5) fL Seg Neuts % (Manual) 78.0 Lymphocytes % (Manual) 6.0 L (20.5-60.0) % Monocytes % (Manual) 16.0 H (1.7-12.0) % Eosinophils % (Manual) 0.0 L (0.9-7.0) % Basophils % (Manual) 0.0 L (0.2-2.0) % Neutrophils # (Manual) 7.87 H (1.4-6.5) 10^3/uL Lymphocytes # (Manual) 0.60 L (1.20-3.80) 10^3/uL Monocytes # (Manual) 1.61 H (0.30-0.80) 10^3/uL Eosinophils # (Manual) 0.00 (0.00-0.70) 10^3/uL Basophils # (Manual) 0.00 (0.00-0.10) 10^3/uL Sodium 135 L (136-145) mmol/L Potassium 4.2 (3.5-5.1) mmol/L Chloride 103 (98-107) mmol/L Carbon Dioxide 25.4 (21.0-32.0) mmol/L Anion Gap 10.8 BUN 28.0 H (7.0-18.0) mg/dL Creatinine 1.20 (0.70-1.30) mg/dL Est GFR ( Amer) >60 (>=60) Est GFR (Non-Af Amer) 57 L (>=60) BUN/Creatinine Ratio 23.3 Glucose 91 (74-106) mg/dL Calcium 9.2 (8.5-10.1) mg/dL Total Bilirubin 1.7 H (0.2-1.0) mg/dL AST 21 (15-37) U/L ALT 21 (16-63) U/L Alkaline Phosphatase 78 (46-116) U/L Total Protein 7.0 (6.4-8.2) g/dL Albumin 2.8 L (3.4-5.0) g/dL Globulin 4.2 g/dL Albumin/Globulin Ratio 0.7 Discharge Plan Discharge Chief Complaint: Extremity Problem, Nontraumatic Clinical Impression: Arthritis of knee Patient Disposition: Home, Self-Care Time of Disposition Decision: 13:29 Prescriptions / Home Meds: New prednisone 20 mg tablet 40 mg PO DAILY 5 Days Qty: 10 0RF acetaminophen [Tylenol 8 Hour] 650 mg tablet extended release 650 mg PO Q8H PRN (Reason: pain ) Qty: 20 0RF No Action methylprednisolone [Medrol (Richard)] 4 mg tablets,dose pack See Rx Instructions .ROUTE .COMPLEX Qty: 21 0RF Rx Instructions: Taper as directed Instructions: Osteoarthritis (ED) Stand Alone Forms: Portal Instructions Referrals: GEORGETTE DAVISON [Primary Care Provider] - 1 week Discharge Date/Time: 10/30/23 13:55
== END 2023-10-30 13:55 | disposition home or self-care (01) ==
PROVIDERS: Emergency Provider Emergency Medicine; PCP Family Medicine
DX: M17.12 Unilateral primary osteoarthritis, left knee (principal)
CPT/HCPCS: 36415; 73564; 80053; 85007; 85027; 96372; 99284; J1885; J7512

== ENCOUNTER 2024-03-16 09:49 | Outpatient (RCR) | payer MEDICARE, OTHER, SELFPAY | END 2024-04-04 16:10 | disposition home or self-care (01) | LOC: PT 09:49 | PROVIDERS: PCP Family Medicine; Visit Provider Nurse Practitioner | DX: G62.9 Polyneuropathy, unspecified (principal); M79.606 Pain in leg, unspecified; Z91.81 History of falling | CPT/HCPCS: 97110; 97162 ==

== ENCOUNTER 2024-04-22 10:31 | Outpatient (OUT) | payer MEDICARE, OTHER, SELFPAY ==
--- NOTE | 2024-04-22 10:32 | XR_ITS ---
The [address] [address] Patient Name: GIOVANNY ANGULO MRN: [id number] date: 1935 Sex: M Assigned Patient Location: [facility] Current Patient Location: Accession/Order Number: [id number] Exam Date: 04/22/2024 10:40 Report Date: 04/23/2024 04:46 At the request of: DAVID CARR Procedure: XR chest 2V EXAMINATION: XR chest 2V HISTORY: Cough COMPARISON: XR chest 05/18/2016 FINDINGS: LUNGS: Hyperexpanded lungs without focal infiltrates or mass. VASCULATURE: No increased pulmonary vasculature. PLEURA: No pneumothorax, effusion, or pleural thickening. CARDIAC: No cardiomegaly or cardiac silhouette abnormality. MEDIASTINUM: No visible mass or adenopathy. BONES: No fracture or visible bone lesion. OTHER: Negative. XR/XR chest 2V IMPRESSION: 1. No acute cardiopulmonary process. 2. Hyperexpanded lungs suggestive of mild emphysematous changes. Electronically authenticated by: ASHLEE MIXON Date: 04/23/2024 04:46
== END 2024-04-22 10:32 | disposition home or self-care (01) ==
LOC: RAD 10:31
PROVIDERS: PCP Family Medicine; Visit Provider Nurse Practitioner
DX: R05.9 Cough, unspecified (principal)
CPT/HCPCS: 71046

== ENCOUNTER 2024-06-04 13:50 | Emergency (ER) | payer MEDICARE, OTHER, SELFPAY ==
[2024-06-04 13:56] VITALS: BP 143/68; PULSE 95; TEMP 37.2; O2SAT 95; BMI 28.7
--- NOTE | 2024-06-04 14:14 | ED.EXTPRO1 ---
HPI - Extremity Problem General Chief complaint: Extremity Problem, Nontraumatic Stated complaint: LOWER EXTREMITY PAIN Time Seen by Provider: 06/04/24 13:53 Source: patient and family Mode of arrival: Wheelchair Limitations: no limitations History of Present Illness HPI Narrative: 89-year-old male with history of osteoarthritis his knee bilaterally coming to the ER with a knee pain over the last 24 hours getting worse more than usual, the patient denies any fall or trauma He did not use anything [id number] for the pain Related Data Previous Rx's ?Medication ?Instructions ?Recorded methylprednisolone 4 mg tablets in See Rx Instructions .Route 10/02/23 a dose pack (Medrol (Richard)) .COMPLEX #21 ea acetaminophen 650 mg 650 mg PO Q8H PRN pain #20 tabs 10/30/23 tablet,extended release (Tylenol 8 Hour) prednisone 20 mg tablet 40 mg (2 x 20 mg) PO DAILY 5 days 10/30/23 #10 tabs tramadol 50 mg tablet 50 mg PO Q8H PRN pain #9 tabs 06/04/24 Allergies Allergy/AdvReac Type Severity Reaction Status Date / Time No Known Drug Allergies Allergy Verified 06/04/24 13:56 Review of Systems ROS Status of ROS 10 or more systems reviewed and unremarkable except as noted in history and below PFSH PFSH Social History Smoking status: Never smoker Exam Narrative Exam Narrative: Nurses notes and vital signs reviewed and patient is not hypoxic. General: Well-appearing and in no apparent distress. Skin: Warm, dry, no pallor noted. No rash. Head: Normocephalic, atraumatic. Neck: Supple, non-tender. Eye: Pupils are equal, round and EOMI. No scleral icterus. Ears, Nose, Mouth, and Throat: TM are clear, no nasal mucosal hypertrophy. Oral mucosa is moist, no posterior oropharynx erythema, uvula is mid-line Cardiovascular: Regular Rate and Rhythm without murmur, gallop or rub. Respiratory: No accessory muscle use or respiratory distress. Lungs are clear to auscultation, no wheezing, rales or rhonchi Chest Wall: no tenderness Back: No midline thoracic or lumbar vertebral tenderness. No CVA tenderness Musculoskeletal: normal ROM, no calf or popliteal tenderness, no lower extremity edema/swelling GI: Abdomen is soft, non-distended. Normal bowel sounds. No masses appreciated. No tenderness to palpation. No rebound, guarding, or rigidity noted. Neurological: A&O x4. No cranial nerve dysfunction observed. No truncal ataxia. Moves all extremities. Sensation intact. Psychiatric: Cooperative and interactive. Normal mood and affect. Constitutional Vital Signs, click to edit/add: Last Vital Signs Temp 98.9 F 06/04/24 13:56 Pulse 95 H 06/04/24 13:56 Resp 18 06/04/24 13:56 BP 143/68 H 06/04/24 13:56 Pulse Ox 95 06/04/24 13:56 O2 Del Method Room Air 06/04/24 13:56 Course Vital Signs Vital signs: Vital Signs Temperature 98.9 F 06/04/24 13:56 Pulse Rate 95 H 06/04/24 13:56 Respiratory Rate 18 06/04/24 13:56 Blood Pressure 143/68 H 06/04/24 13:56 Pulse Oximetry 95 06/04/24 13:56 Oxygen Delivery Method Room Air 06/04/24 13:56 Temperature 98.9 F 06/04/24 13:56 Pulse Rate 95 H 06/04/24 13:56 Respiratory Rate 18 06/04/24 13:56 Blood Pressure 143/68 H 06/04/24 13:56 Pulse Oximetry 95 06/04/24 13:56 Oxygen Delivery Method Room Air 06/04/24 13:56 MDM - Extremity (Nontraumatic) MDM Narrative Medical decision making narrative: The patient does not have any knee swelling or infection signs that could be appreciated and I could not elicit the pain with exam The patient was provided with Toradol in the ER and tramadol after which she was able to stand up and feeling better Patient was discharged home with tramadol. The patient is to follow up with primary care physician in next 2-3 days or to return to the emergency department should any of the signs or symptoms worsen or new symptoms develop. The patient agrees with the following Diagnosis and Treatment plan and the patient will be discharged home. Discharge Plan Discharge Stand Alone Forms: Work/School Release, Portal Instructions Chief Complaint: Extremity Problem, Nontraumatic Clinical Impression: Arthritis of knee Patient Disposition: Home, Self-Care Time of Disposition Decision: 14:16 Condition: Good Prescriptions / Home Meds: New tramadol 50 mg tablet 50 mg PO Q8H PRN (Reason: pain) Qty: 9 0RF No Action methylprednisolone [Medrol (Richard)] 4 mg tablets,dose pack See Rx Instructions .ROUTE .COMPLEX Qty: 21 0RF Rx Instructions: Taper as directed prednisone 20 mg tablet 40 mg PO DAILY 5 Days Qty: 10 0RF acetaminophen [Tylenol 8 Hour] 650 mg tablet extended release 650 mg PO Q8H PRN (Reason: pain ) Qty: 20 0RF Print Language: [place] Instructions: Osteoarthritis (DC) Referrals: GEORGETTE DAVISON [Primary Care Provider] - 1 week
[2024-06-04] MEDS: KETOROLAC TROMETHAMINE 30 MG/ML VIAL 15 MG IM (14:22)
[2024-06-04] MEDS: TRAMADOL HCL 50 MG TABLET PO (14:23)
[2024-06-04 15:26] VITALS: PULSE 80; O2SAT 98
== END 2024-06-04 15:27 | disposition home or self-care (01) ==
PROVIDERS: Emergency Provider Emergency Medicine; PCP Family Medicine
DX: M17.0 Bilateral primary osteoarthritis of knee (principal)
CPT/HCPCS: 96372; 99284; J1885

== ENCOUNTER 2024-06-09 08:49 | Emergency (ER) | payer MEDICARE, OTHER, SELFPAY ==
[2024-06-09 08:52] VITALS: BP 159/80; PULSE 88; TEMP 37; O2SAT 96; BMI 26.5
[2024-06-09] MEDS: ACETAMINOPHEN 325 MG TABLET 650 MG PO (09:14)
[2024-06-09] MEDS: KETOROLAC TROMETHAMINE 30 MG/ML VIAL 15 MG IM (09:15)
--- NOTE | 2024-06-09 09:20 | ED.EXTPRO1 ---
HPI - Extremity Problem General Chief complaint: Extremity Problem, Nontraumatic Stated complaint: LOWER EXTREMITY PAIN Time Seen by Provider: 06/09/24 08:59 Source: patient Mode of arrival: Wheelchair Limitations: no limitations History of Present Illness HPI Narrative: The patient presented to us with a bilateral knee pain he was evaluated for that almost few days ago, patient's pain is chronic and he is not taking anything for it, the patient has not even taken any Tylenol He took some tramadol that he was prescribed and he is feeling better right now but he needs some more pain medication No history of trauma or fall Related Data Home Medications ?Medication ?Instructions ?Recorded ?Confirmed levothyroxine 125 mcg tablet 125 mcg PO DAILY 06/09/24 06/09/24 Previous Rx's ?Medication ?Instructions ?Recorded acetaminophen 650 mg 650 mg PO Q8H PRN pain #20 tabs 06/09/24 tablet,extended release (Tylenol 8 Hour) Allergies Allergy/AdvReac Type Severity Reaction Status Date / Time No Known Drug Allergies Allergy Verified 06/09/24 08:51 Review of Systems ROS Status of ROS 10 or more systems reviewed and unremarkable except as noted in history and below [facility] Social History Smoking status: Never smoker Exam Narrative Exam Narrative: Nurses notes and vital signs reviewed and patient is not hypoxic. General: Well-appearing and in no apparent distress. Skin: Warm, dry, no pallor noted. No rash. Head: Normocephalic, atraumatic. Neck: Supple, non-tender. Eye: Pupils are equal, round and EOMI. No scleral icterus. Ears, Nose, Mouth, and Throat: TM are clear, no nasal mucosal hypertrophy. Oral mucosa is moist, no posterior oropharynx erythema, uvula is mid-line Cardiovascular: Regular Rate and Rhythm without murmur, gallop or rub. Respiratory: No accessory muscle use or respiratory distress. Lungs are clear to auscultation, no wheezing, rales or rhonchi Chest Wall: no tenderness Back: No midline thoracic or lumbar vertebral tenderness. No CVA tenderness Musculoskeletal: normal ROM, no calf or popliteal tenderness, no lower extremity edema/swelling GI: Abdomen is soft, non-distended. Normal bowel sounds. No masses appreciated. No tenderness to palpation. No rebound, guarding, or rigidity noted. Neurological: A&O x4. No cranial nerve dysfunction observed. No truncal ataxia. Moves all extremities. Sensation intact. Psychiatric: Cooperative and interactive. Normal mood and affect. Constitutional Vital Signs, click to edit/add: Last Vital Signs Temp 98.6 F 06/09/24 08:52 Pulse 88 06/09/24 08:52 Resp 20 06/09/24 08:52 BP 159/80 H 06/09/24 08:52 Pulse Ox 96 06/09/24 08:52 O2 Del Method Room Air 06/09/24 08:52 Course Vital Signs Vital signs: Vital Signs Temperature 98.6 F 06/09/24 08:52 Pulse Rate 88 06/09/24 08:52 Respiratory Rate 20 06/09/24 08:52 Blood Pressure 159/80 H 06/09/24 08:52 Pulse Oximetry 96 06/09/24 08:52 Oxygen Delivery Method Room Air 06/09/24 08:52 Temperature 98.6 F 06/09/24 08:52 Pulse Rate 88 06/09/24 08:52 Respiratory Rate 20 06/09/24 08:52 Blood Pressure 159/80 H 06/09/24 08:52 Pulse Oximetry 96 06/09/24 08:52 Oxygen Delivery Method Room Air 06/09/24 08:52 MDM - Extremity (Nontraumatic) MDM Narrative Medical decision making narrative: The patient presented with a chronic bilateral knee pain is mostly secondary to osteoarthritis there is no signs of acute infection or any trauma Patient was treated in the ER with Toradol discharged home with Tylenol and referred to orthopedic as outpatient case needed The patient is to follow up with primary care physician in next 2-3 days or to return to the emergency department should any of the signs or symptoms worsen or new symptoms develop. The patient agrees with the following Diagnosis and Treatment plan and the patient will be discharged home. 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
--- OUTSIDE RECORDS SUMMARY | 2024-06-09 09:27 | XMS_ITS | CCD ---
Author Organization [facility] Inform ion Partnership [facility] Care Team Providers Care Telecommunication Tower Technician Name Role Phone Sue Dillon Primary Care Provider Dale Mcpherson Attending Provider SARAH KIDD Admitting Unavailable MARTISARAH Attending Unavailable DILLON, DR SUE Shell Primary Care Unavailable DILLON, DR SUE Shell Primary Care Unavailable PAY, DR HARP Admitting Unavailable PAY, DR HARP Attending Unavailable ZIEBER, DR ASHLEE Miller Consulting Unavailable PAY, DR HARP Consulting Unavailable Sedrick, Shelley Wisdom Primary Care Unavailable Luanne Paulino Attending Unavailable JeffersonLuanne Admitting Unavailable Sedrick, Shelley Rodriguez Primary Care Physician [phone] Sedrick, Shelley Rodriguez Attending Unavailable Sedrick, Shelley L Admitting Unavailable Sedrick, CLAM SORTER Shelley Michael Attending Unavailable Sedrick, CLAM SORTER Shelley L Attending Unavailable Sedrick, CLAM SORTER Shelley L Attending Unavailable Sedrick, CLAM SORTER Shelley L Attending Unavailable Sedrick, CLAM SORTER Shelley L Admitting Unavailable Sedrick, CLAM SORTER Shelley L Attending Unavailable Sedrick, CLAM SORTER Shelley L Attending Unavailable Unavailable Unavailable Unavailable Medications Current Medications Medication Drug Class(es) Dates Sig (Normalized) Sig (Original) levothyroxine sodium 0.125 mg oral tablet (1 source) l-Thyroxine Start: 04-14-2024 take 1 tablet by mouth once daily levothyroxine 125 mcg (0.125 mg) Tab See Instructions, TAKE 1 TABLET BY MOUTH EVERY DAY, # 90 tab(s), Refills(s) 3, Pharmacy: [id number], 168, cm, 03/30/24 11:14:00 EDT, Height/Length Dosing, 90, kg, 03/30/24 11:14:00 EDT, Weight Dosing Start Date: 04/14/24 Status: Ordered Multi Vitamin+ (1 source) Start: 04-03-2023 Multi Vitamin+ Oral, Daily, Refill(s) 0 Start Date: 04/03/23 Status: Ordered Problems Active Problems Problem Classification Problem Date Documented Date Episodic/Chronic Calculus of urinary tract (2 sources) Personal history of urinary calculi; Translations: [Kidney stone] Onset: 11-20-2021 04-24-2021 Episodic Cancer of kidney and renal pelvis (1 source) History of malignant neoplasm of kidney 04-24-2021 Episodic Cancer of thyroid (1 source) Malignant tumor of thyroid gland 04-20-2021 Chronic Cancer of thyroid (1 source) History of medullary carcinoma of thyroid 04-24-2021 Episodic Chronic kidney disease (2 sources) Chronic kidney disease; Translations: [Chronic kidney disease stage 2] 08-15-2023 Chronic Comment on above: added per 08/09/2023 query response. Complications of surgical procedures or medical care (1 source) Postprocedural hypothyroidism; Translations: [POSTPROCEDURAL HYPOTHYROIDISM] Onset: 11-20-2021 Chronic Delirium, dementia, and amnestic and other cognitive disorders (1 source) Dementia 04-20-2024 Chronic Heart valve disorders (1 source) Aortic valve regurgitation 04-24-2021 Chronic Other and unspecified benign neoplasm (1 source) Hemangioma of skin and subcutaneous tissue 04-26-2021 Episodic Other connective tissue disease (4 sources) Other symptoms and signs involving the musculoskeletal system; Translations: [OTH SX AND SYMP INVOLV MUSCULOSKELTAL] Onset: 08-31-2022 Episodic Other connective tissue disease (1 source) Pain in lower limb 08-13-2023 Episodic Other injuries and conditions due to external causes (1 source) History of fall 11-08-2023 Episodic Other lower respiratory disease (1 source) Cough 04-20-2024 Episodic Other nervous system disorders (1 source) Unsteadiness on feet; Translations: [UNSTEADINESS ON FEET] Onset: 09-03-2022 Episodic Other nervous system disorders (1 source) Impaired cognition 08-09-2023 Episodic Comment on above: noted in 12/13/2022 Neurology Consult Note page 2. added per [facility] policy. Other non-traumatic joint disorders (1 source) Knee pain 11-08-2023 Episodic Other nutritional; endocrine; and metabolic disorders (2 sources) Body mass index 30+ - obesity 03-30-2024 Chronic Spondylosis; intervertebral disc disorders; other back problems (2 sources) Radiculopathy, lumbosacral region; Translations: [Lumbosacral radiculopathy] Onset: 09-03-2022 08-09-2023 Episodic Comment on above: noted in 12/13/2022 Neurology Consult Note page 2. added per [facility]I policy. Thyroid disorders (1 source) Hypothyroidism 04-03-2023 Chronic Transient cerebral ischemia (1 source) Transient cerebral ischemia 04-20-2021 Chronic Unclassified (1 source) Mild cognitive impairment of uncertain or unknown etiology; Translations: [Mild cognitive impairment of uncertain or unknown etiology] Onset: 09-04-2023 Unclassified (1 source) Non-smoker 04-17-2023 Unclassified (1 source) Patient encounter status 04-20-2024 Past or Other Problems Problem Classification Problem Date Documented Da te Episodic/Chronic E Codes: Fall (1 source) Fall on same level due to ice and snow, initial encounter; Translations: [FALL SAME LEVEL D/T ICE SNOW INIT] Onset: 11-20-2021 Episodic Other aftercare (1 source) Other energy projects lead (current) drug therapy; Translations: [OTH LONG-TERM CURRENT DRUG THERAPY] Onset: 11-20-2021 Episodic Other [...] Name Value Interpretation Reference Range Facil ity CBC w/ Auto Diffon 4 Basophils/100 WBC (Bld) 0.7 % Normal 0.0-2.0 [facility] Comment on above: Performed By: #### 2 [id number] #### [facility] [address] [place] [address] Basophils/Leukocytes Auto (Bld) [Pure # fraction] 0.0 E9/L Normal 0.0-0.2 [facility] Comment on above: Performed By: #### 2 [id number] #### [facility] [address] [place] [address] Eosinophils (Bld) [#/Vol] 0.1 E9/L Normal 0.0-0.5 [facility] Comment on above: Performed By: #### 2 [id number] #### [facility] [address] [place] [address] Eosinophils/100 WBC (Bld) 1.6 % Normal 0.0-8.0 [facility] Comment on above: Performed By: #### 2 [id number] #### [facility] [address] [place] [address] Erythrocyte distribution width (RBC) [Ratio] 13.8 % Normal 10.9-14.2 [facility] Comment on above: Performed By: #### 2 [id number] #### [facility] [address] [place] [address] Hematocrit (Bld) [Volume fraction] 41.2 % Normal 37.7-49.0 [facility] Comment on above: Performed By: #### 2 [id number] #### [facility] [address] [place] [address] Hemoglobin (Bld) [Mass/Vol] 14.4 g/dL Normal 13.5-17.5 [facility] Comment on above: Performed By: #### 2 [id number] #### [facility] [address] [place] [address] Lymphocytes (Bld) [#/Vol] 1.0 E9/L Normal 1.0-4.0 [facility] Comment on above: Performed By: #### 2 [id number] #### [facility] [address] [place] [address] Lymphocytes/100 WBC (Bld) 17.9 % Normal 14.0-50.0 [facility] Comment on above: Performed By: #### 2 [id number] #### [facility] [address] [place] [address] MCH (RBC) [Entitic mass] 34.7 pg High 27.0-34.0 [facility] Comment on above: Performed By: #### 2 [id number] #### [facility] [address] [place] [address] MCHC (RBC) [Mass/Vol] 35.1 g/dL Normal 31.4-36.0 [facility] Comment on above: Performed By: #### 2 [id number] #### [facility] [address] [place] [address] MCV (RBC) [Entitic vol] 98.9 fL Normal 80.0-100.0 [facility] Comment on above: Performed By: #### 2 [id number] #### [facility] [address] [place] [address] Monocytes (Bld) [#/Vol] 0.6 E9/L Normal 0.2-1.0 [facility] Comment on above: Performed By: #### 2 [id number] #### [facility] [address] [place] [address] Neutrophils (Bld) [#/Vol] 4.0 E9/L Normal 2.0-7.5 [facility] Comment on above: Performed By: #### 2 [id number] #### [facility] [address] [place] [address] Neutrophils/100 WBC (Bld) 68.7 % Normal 36.0-75.0 [facility] Comment on above: Performed By: #### 2 [id number] #### [facility] [address] [place] [address] Platelet 172.0 E9/L Normal 150.0-500.0 [facility] Comment on above: Performed By: #### 2 [id number] #### [facility] [address] [place] [address] Platelet mean volume (Bld) [Entitic vol] 8.3 fL Normal 6.4-10.8 [facility] Comment on above: Performed By: #### 2 [id number] #### [facility] [address] [place] [address] RBC (Bld) [#/Vol] 4.2 E12/L Low 4.3-5.9 [facility] Comment on above: Performed By: #### 2 [id number] #### [facility] [address] [place] [address] WBC corrected for nucl RBC Auto (Bld) [#/Vol] 5.8 E9/L Normal 4.0-11.0 [facility] Comment on above: Performed By: #### 2 [id number] #### [facility] [address] [place] [address] CHEMISTRYOrdered By: SYSTEM SYSTEM on 04-20-2024 Albumin [Mass/Vol] 3.7 g/dL Normal 3.3 - 5.0 gm/dL R emisol Chem Albumin/Globulin [Mass ratio] 1.3 {ratio} Normal 1.1 - 2.2 [facility] ALP [Catalytic activity/Vol] 57 [iU]/d Normal 21 - 98 Int._Unit/L [facility] ALT No additional P-5'-P [Catalytic activity/Vol] 13 [iU]/d Normal 6 - 46 Int._Unit/L [facility] Anion gap [Moles/Vol] 10 mmol/L Normal 6 - 16 mEq/L R em[facility] Chem AST [Catalytic activity/Vol] 21 [iU]/d Normal 5 - 43 Int._Unit/L [facility] Bilirubin [Mass/Vol] 1.0 mg/dL Normal 0.0 - 1.1 mg/dL [facility] Calcium [Mass/Vol] 9.1 mg/dL Normal 8.9 - 11. 1 mg/dL [facility] Chloride [Moles/Vol] 106 mmol/L Normal 101 - 1 11 mmol/L [facility] Cholesterol [Mass/Vol] 163 mg/dL Normal 120 - 200 mg/dL [facility] Cholesterol in HDL [Mass/Vol] 34 mg/dL Invalid Interpretation Code [facility] Comment on above: Result Comment: '>= 60 LOW RISK' '<= 40 HIGH RISK' Cholesterol in LDL [Mass/Vol] 101 mg/dL Normal <=129mg/dL [facility] Cholesterol in VLDL [Mass/Vol] 34 mg/dL Normal 7 - 40 mg/dL [facility] CO2 [Moles/Vol] 24 mmol/L Normal 21 - 31 mmol/L [facility] Creatinine [Mass/Vol] 1.0 mg/dL Normal 0.5 - 1.3 mg/d L [facility] eGFR 72 mL/min/1.73 m2 Normal >=59mL/min /1.73 m2 [facility] Globulin (S) [Mass/Vol] 2.9 g/dL Normal 1.4 - 4.0 gm/dL [facility] Glucose [Mass/Vol] 129 mg/dL Normal 55 - 199 mg/dL Re misol Chem Potassium [Moles/Vol] 4.4 mmol/L Normal 3.5 - 5.3 mmol/L [facility] Protein [Mass/Vol] 6.6 g/dL Normal 6.0 - 7.8 gm/dL R em[facility] Chem Sodium [Moles/Vol] 136 mmol/L Normal 135 - 145 mmol/L [facility] Triglyceride [Mass/Vol] 170 mg/dL High <=149mg/dL [facility] TSH Qn 0.86 m[IU]/L Normal 0.34 - 5.60 mcIU/mL [facility] Urea nitrogen [Mass/Vol] 22 mg/dL High 5 - 21 mg/dL [facility] Urea nitrogen/Creatinine [Mass ratio] 22 mg/mg High 10 - 20 [facility] CMPon 04-20-2024 Albumin [Mass/Vol] 3.7 g/dL Normal 3.3-5.0 [facility] Comment on above: Performed By: #### 2 [id number] #### [facility] [address] [place] [address] Albumin/Globulin (S) [Mass conc ratio] 1.3 Normal 1.1-2.2 [facility] Comment on above: Performed By: #### 2 [id number] #### [facility] [address] [place] [address] ALP [Catalytic activity/Vol] 57 Int._Unit/L Normal 21-98 [facility] Comment on above: Performed By: #### 2 [id number] #### [facility] [address] [place] [address] ALT No additional P-5'-P [Catalytic activity/Vol] 13 Int._Unit/L Normal 6-46 [facility] Comment on above: Performed By: #### 2 [id number] #### [facility] [address] [place] [address] Anion gap [Moles/Vol] 10 mmol/L Normal 6-16 [facility] Comment on above: Performed By: #### 2 [id number] #### [facility] [address] [place] [address] AST [Catalytic activity/Vol] 21 Int._Unit/L Normal 5-43 [facility] Comment on above: Performed By: #### 2 [id number] #### [facility] [address] [place] [address] Bilirubin [Mass/Vol] 1.0 mg/dL Normal 0.0-1.1 [facility] Comment on above: Performed By: #### 2 [id number] #### [facility] [address] [place] [address] Calcium [Mass/Vol] 9.1 mg/dL Normal 8.9-11.1 [facility] Comment on above: Performed By: #### 2 [id number] #### [facility] [address] [place] [address] Chloride [Moles/Vol] 106 mmol/L Normal 101-111 [facility] Comment on above: Performed By: #### 2 [id number] #### [facility] [address] [place] [address] CO2 [Moles/Vol] 24 mmol/L Normal 21-31 [facility] Comment on above: Performed By: #### 2 [id number] #### [facility] [address] [place] [address] Creatinine [Mass/Vol] 1.0 mg/dL Normal 0.5-1.3 [facility] Comment on above: Performed By: #### 2 [id number] #### [facility] [address] [place] [address] Globulin (S) [Mass/Vol] 2.9 g/dL Normal 1.4-4.0 [facility] Comment on above: Performed By: #### 2 [id number] #### [facility] [address] [place] [address] Glucose [Mass/Vol] 129 mg/dL Normal 55-199 [facility] Comment on above: Performed By: #### 2 [id number] #### [facility] [address] [place] [address] Potassium [Moles/Vol] 4.4 mmol/L Normal 3.5-5.3 [facility] Comment on above: Performed By: #### 2 [id number] #### [facility] [address] [place] [address] Protein [Mass/Vol] 6.6 g/dL Normal 6.0-7.8 [facility] Comment on above: Performed By: #### 2 [id number] #### [facility] [address] [place] [address] Sodium [Moles/Vol] 136 mmol/L Normal 135-145 [facility] Comment on above: Performed By: #### 2 [id number] #### [facility] [address] [place] [address] Urea nitrogen [Mass/Vol] 22 mg/dL High 5-21 [facility] Comment on above: Performed By: #### 2 [id number] #### [facility] [address] [place] [address] Urea nitrogen/Creatinine [Mass ratio] 22 No Units High 10-20 [facility] Comment on above: Performed By: #### 2 [id number] #### [facility] [address] [place] [address] Family Medicine Office/Clini c Noteon 07-15-2024 Family Medicine Office/Clinic Note Family Medicine Office/Clinic Note [facility] Staff Giovanny is a 89 year old presenting with yearly F/U thyroid and dementia Patient is here for follow up on Thyroid Disease. Do you have any of the following symptoms? Change in energy level? no off and on Weight change? no Heat/cold intolerance? no Hair/skin/nail changes? no Change in bowels? no Last TSH: due Pt is requesting an X-rays on his chest @ [facility] he coughs yellow flem occasionally Legs are painfully in the back of his knees PT- started over a week ago has done 3 sessions so far. So far no change History of Present Illness pt presents today for 6 month follow up Review of Systems PHQ Score Initial Depression Screen Score: 0 SCORE Physical Exam Vitals & Measurements T: 36.9 ?C(Temporal Artery) HR: 74(Peripheral) RR: 18 BP: 122/78 SpO2: 99% HT: 66 in HT: 168 cm WT: 89.85 kg WT: 197.67 lb BMI: 31.83 General: alert, no acute distress ENMT: oral mucosa moist, no pharyngeal erythema or exudate Cardiovascular: regular rate and rhythm, normal peripheral perfusion Respiratory: Lungs CTA, respirations non labored Extremities: no deformity, no trauma Neurological: oriented x 4, LOC appropriate for age, CN II-XII intact, motor strength equal & normal bilaterally, speech normal Assessment/Plan 1. Hypothyroid (E03.9: Hypothyroidism, unspecified) TSH drawn in office today. does not need refills at this time Ordered: Body Mass Index (BMI) documented 3008F CBC w/ Auto Diff Comprehensive Metabolic Panel Current tobacco non-user 1036F Depression Screening Negative 3352F Influenza immunization status assessed 1030F Most recent diastolic blood pressure 80-89 mm Hg 3079F Patient screen for fall risk: no falls in last year or 1 fall with no injury in last year 1101F Systolic BP <130 mm Hg (Most Recent) 3074F 2. Chronic kidney disease, stage 2 (mild) (N18.2: Chronic kidney disease, stage 2 (mild)) labs drawn today Ordered: Body Mass Index (BMI) documented 3008F CBC w/ Auto Diff Comprehensive Metabolic Panel Current tobacco non-user 1036F Depression Screening Negative 3352F Influenza immunization status assessed 1030F Most recent diastolic blood pressure 80-89 mm Hg 3079F Patient screen for fall risk: no falls in last year or 1 fall with no injury in last year 1101F Systolic BP <130 mm Hg (Most Recent) 3074F 3. Dementia (F03.90: Unspecified dementia, unspecified severity, without behavioral disturbance, psychotic disturbance, mood disturbance, and anxiety) pt seeing neurology Ordered: Body Mass Index (BMI) documented 3008F CBC w/ Auto Diff Comprehensive Metabolic Panel Current tobacco non-user 1036F Depression Screening Negative 3352F Influenza immunization status assessed 1030F Most recent diastolic blood pressure 80-89 mm Hg 3079F Patient screen for fall risk: no falls in last year or 1 fall with no injury in last year 1101F Systolic BP <130 mm Hg (Most Recent) 3074F 4. Screening for hyperlipidemia (Z13.220: Encounter for screening for lipoid disorders) lipid panel in office today Ordered: Body Mass Index (BMI) documented 3008F Current tobacco non-user 1036F Depression Screening Negative 3352F Influenza immunization status assessed 1030F Lipid Panel Most recent diastolic blood pressure 80-89 mm Hg 3079F Patient screen for fall risk: no falls in last year or 1 fall with no injury in last year 1101F Systolic BP <130 mm Hg (Most Recent) 3074F 5. Cough (R05.9: Cough, unspecified) pt c/o cough with yellow phlegm. chest x ray ordered provided. 6. BMI 31.0-31.9,adult (Z68.31: Body mass index [BMI] 31.0-31.9, adult) BMI education given Ordered: Body Mass Index (BMI) documented 3008F Current tobacco non-user 1036F Depression Screening Negative 3352F Influenza immunization status assessed 1030F Most recent diastolic blood pressure 80-89 mm Hg 3079F Patient screen for fall risk: no falls in last year or 1 fall with no injury in last year 1101F Systolic BP <130 mm Hg (Most Recent) 3074F 7. Non-smoker (Z78.9: Other specified health status) continue not smoking Ordered: Body Mass Index (BMI) documented 3008F Current tobacco non-user 1036F Depression Screening Negative 3352F Influenza immunization status assessed 1030F Most recent diastolic blood pressure 80-89 mm Hg 3079F Patient screen for fall risk: no falls in last year or 1 fall with no injury in last year 1101F Systolic BP <130 mm Hg (Most Recent) 3074F Follow-up No qualifying data available Problem List/Past Medical History Ongoing Aortic regurgitation BMI 31.0-31.9,adult Chronic kidney disease, stage 2 (mild) Cough Dementia Hemangioma History of medullary carcinoma of thyroid History of recent fall History of renal cell cancer Hypothyroid Left knee pain Lower extremity pain Lumbosacral radiculopathy Mild cognitive impairment Nephrolithiasis Non-smoker Screening for hyperlipidemia Historic (more content not included)... Normal [facility] Comment on above: Result Comment: Elec tronically Signed By: Sedrick ARMANDO, Shelley Rodriguez\.br\Date and Time Signed: 04/20/24 10:31 EDT HEMATOLOGYOrdered By: SYSTEM SYSTEM on 04-20-2024 Basophils/100 WBC (Bld) 0.7 % Normal 0.0 - 2.0 % [facility] Basophils/Leukocytes Auto (Bld) [Pure # fraction] 0.0 E9/L Normal 0.0 - 0.2 E9/L [facility] Eosinophils (Bld) [#/Vol] 0.1 E9/L Normal 0.0 - 0.5 E9/L [facility] Eosinophils/100 WBC (Bld) 1.6 % Normal 0.0 - 8.0 % [facility] Erythrocyte distribution width (RBC) [Ratio] 13.8 % Normal 10.9 - 14.2 % [facility] Hematocrit (Bld) [Volume fraction] 41.2 % Normal 37.7 - 49.0 % [facility] Hemoglobin (Bld) [Mass/Vol] 14.4 g/dL Normal 13.5 - 17.5 gm/dL [facility] Lymphocytes (Bld) [#/Vol] 1.0 E9/L Normal 1.0 - 4.0 E9/L [facility] Lymphocytes/100 WBC (Bld) 17.9 % Normal 14.0 - 50.0 % [facility] MCH (RBC) [Entitic mass] 34.7 pg High 27.0 - 34.0 pg [facility] MCHC (RBC) [Mass/Vol] 35.1 g/dL Normal 31.4 - 36.0 gm/dL [facility] MCV (RBC) [Entitic vol] 98.9 fL Normal 80.0 - 100.0 fL [facility] Monocytes (Bld) [#/Vol] 0.6 E9/L Normal 0.2 - 1.0 E9/L [facility] Monocytes/100 WBC (Bld) 11.1 % Normal 4.0 - 14.0 % [facility] Neutrophils (Bld) [#/Vol] 4.0 E9/L Normal 2.0 - 7.5 E9/L [facility] Neutrophils/100 WBC (Bld) 68.7 % Normal 36.0 - 75.0 % [facility] Platelet 172.0 E9/L Normal 150.0 - 500.0 E9/L [facility] Platelet mean volume (Bld) [Entitic vol] 8.3 fL Normal 6.4 - 10.8 fL [facility] RBC (Bld) [#/Vol] 4.2 E12/L Low 4.3 - 5.9 E12/L Re misol Heme WBC corrected for nucl RBC Auto (Bld) [#/Vol] 5.8 E9/L Normal 4.0 - 11.0 E9/L [facility] Lipid Panelon 04-20-2024 Cholesterol [Mass/Vol] 163 mg/dL Normal 120-200 [facility] Comment on above: Performed By: #### 2 [id number] #### [facility] [address] [place] [address] Cholesterol in HDL [Mass/Vol] 34 mg/dL Invalid Interpretation Code [facility] Comment on above: Result Comment: '>= 60 LOW RISK' '<= 40 HIGH RISK' Performed By: #### 2 [id number] #### [facility] [address] [place] [address] Cholesterol in LDL [Mass/Vol] 101 mg/dL Normal <=129 [facility] Comment on above: Performed By: #### 2 [id number] #### [facility] [address] [place] [address] Cholesterol in VLDL [Mass/Vol] 34 mg/dL Normal 7-40 [facility] Comment on above: Performed By: #### 2 [id number] #### [facility] [address] [place] [address] Triglyceride [Mass/Vol] 170 mg/dL High <=149 [facility] Comment on above: Performed By: #### [id number] #### [facility] Laboratory [address] [place] [address] TSH With T4fr Reflexon 04-20 TSH Qn 0.86 m[IU]/L Normal 0.34-5.60 [facility] Comment on above: Order Comment: Farooq hurley from [facility] called and she accidentally logged this into [facility]. I logged it back into [facility] for her.04/20/2024 10:39:48 EDT [id number] Performed By: #### [id number] #### [facility] [address] [place] [address] eGFRon 04-20-2024 eGFR 72 mL/min/1.73 m2 Normal >=59 [facility] Comment on above: Order Comment: Order added by Discern Expert. Performed By: #### [id number] #### [facility] [address] [place] [address] Ambulatory Visit Summaryon 0 03-30-2024 Ambulatory Visit Summary GIOVANNY ANGULO :1935 Visit Date:03/30/2024 Ambulatory Visit Instructions Your Diagnosis Annual visit for general adult medical examination without abnormal findings Chronic kidney disease, stage 2 (mild) Mild cognitive impairment Hypothyroid Obesity due to excess calories Non-smoker Your Care Team Attending Physician - Shelley Goss Primary Care Physician - Shelley Goss This Is Your Medications List levothyroxine (levothyroxine 125 mcg (0.125 mg) Tab) multivitamin (Multi Vitamin+) Procedures Performed Cataract extraction, Melanoma, Nephrectomy, Thyroidectomy. Discharge Vitals Heart Rate (Peripheral) 81 Respiratory Rate 16 Blood Pressure 122/62 Height 168 cm Height 66 in Weight 90 kg Weight 198 lb BMI 31.89 What to do next Scheduled Follow-Up Appointments Saturday 10:00 AM EDT With: Shelley Goss Where: [facility] Invalid Interpretation Code [address] [place] [address]- \.br\ You Need to Complete the Following\.br\ TSH With T4fr Reflex, Blood, Routine collect, 04/05/24, Order for future visit, Lab Collect, Annual visit for general adult medical examination without abnormal findings [facility] Consultation Noteon 03-30-20 Consultation Note [id number] 65#1.00TIFF Normal [facility] Family Medicine Office/Clini c Noteon 03-30-2024 Family Medicine Office/Clinic Note Chief Complaint Medicare Wellness Visit Review of Systems PHQ Score Initial Depression Screen Score: 0 SCORE Physical Exam Vitals & Measurements HR: 81(Peripheral) RR: 16 BP: 122/62 SpO2: 96% HT: 168 cm HT: 66 in WT: 90 kg WT: 198 lb BMI: 31.89 Assessment/Plan 1. Annual visit for general adult medical examination without abnormal findings (Z00.00: Encounter for general adult medical examination without abnormal findings) Patient Dahiana and daughter were present with patient at visit today. Discussed all the current AHRQ USPSTF?s recommendations for preventative services and all current CDC recommended immunizations, relevant risk recommendations and the following patient brochures were given. Reviewed Medicare Prevention Services checklist. CDC-Falls Prevention and home safety screening reviewed. Patient denies any falls in last 12 months, voices no worry about falling. Exhibits no problems with sitting, standing or ambulation. Patient aware with keeping walk way area free of clutter to prevent tripping and/or falling. [place] Advance Directives reviewed. Patient does not have Advance Directives, education and educational handout provided to patient , encouraged to bring in for scanning into chart. Patient denies any problems with ADL?s and Instrumental ADL?s. Cognitive screening completed with memory and clock face drawing. No deficits noted. Immunization record reviewed, discussed Shingrix vaccine-UTD. COVID vaccines have been administered, with Boosters received. Allergies and medications reviewed and up to date. No concerns with taking medication as prescribed. Reviewed OTC medications, medication list up to date. Blood tests were reviewed: Discussed what tests need to be updated. Labs were ordered. Labs to be completed with [facility]. No concerns with bowel/ bladder. Colonoscopy: Aged out. Reviewed pain symptoms : denies pain today. States sometimes he has leg pain that is being addressed by Neurology. Reviewed all outside providers that patient follows. Last visit summary notes available in chart and/or have been requested. Patient declines any signs or symptoms of depression at this time. 8 minutes spent with screening and documentation. PHQ2 screening score 0. Patient denies alcohol use, denies concerns. 8 minutes spent with screening and documentation. Audit score 0. Follow up scheduled with PCP, 04/20/24. AWV has been scheduled, 03/18/25. 2. Chronic kidney disease, stage 2 (mild) (N18.2: Chronic kidney disease, stage 2 (mild)) Patient voices understanding with avoiding NSAID's. Healthy Kidney Nutritional education material reviewed and provided with patient. Goals to keep blood sugars and blood pressure under control to reduce cardiovascular risk factors. Medications and blood work monitored with visits. Follow up with PCP. 3. Mild cognitive impairment (G31.84: Mild cognitive impairment of uncertain or unknown etiology) Patient states he no longer takes Memantine for memory. Follows with [facility] in [place] every 3 months. Last office visit 11/2023. Visit summary notes requested. 4. Hypothyroid (E03.9: Hypothyroidism, unspecified) Continues taking Levothyroxine daily as ordered. Denies any sensitivity to cold, extreme hair loss or increased daytime fatigue. Labs and medications followed up with PCP as needed. TSH with T4 reflex ordered, to be completed after 04/03/24. 5. Obesity due to excess calories (E66.09: Other obesity due to excess calories) A combination of diet and exercise can help you lose weight. Discussed weight loss benefits to dietary management and overall health with increased cardiovascular risks associated with waist measurement female>35 men>40. Reminded of importance to work on lowering current body weight with healthy dietary intake choices and portion control. Reviewed goals and patients readiness with needing to make a lifestyle change. Will work on increasing daily activity to prevent further weight gain. Will continue to monitor during office visits with progress. 6. Non-smoker (Z78.9: Other specified health status) Encouraged to continue to not smoke. Follow-up No qualifying data available Patient Education Hypothyroidism Food Basics for Chronic Kidney Disease Chronic Kidney Disease, Adult, [id number] Advance Directive Problem List/Past Medical History Ongoing Aortic regurgitation BMI 31.0-31.9,adult Chronic kidney disease, stage 2 (mild) Hemangioma History of medullary carcinoma of thyroid History of recent fall History of renal cell cancer Hypothyroid Left knee pain Lower extremity pain Lumbosacral radiculopathy Mild cognitive impairment Nephrolithiasis Non-smoker Historical BMI 30.0-30.9,adult CKD (chronic kidney disease) Thyroid cancer TIA Procedure/Surgical History Cataract extraction, Melanoma, Nephrectomy, Thyroidectomy. Medications levothyroxine 125 mcg (0.125 mg) Tab, 125 mcg= 1 tab(s), Oral, Daily, 3 refill (more content not included)... Normal [facility] Comment on above: Result Comment: Elec tronically Signed By: Shelley Goss\.br\Date and Time Signed: 03/30/24 12:35 EDT\.br\Electronically Co-Signed By: Brittney Scott LPN\.br\Date and Time Co-Signed: 03/30/24 11:37 EDT Lab Reportson 03-30-2024 Lab Reports [id number] C#1.00TIFF Normal [facility] Patient Educationon 03-30-20 Patient Education Caregiving Advance Directive Advance directives are legal documents that allow you to make decisions about your health care and medical treatment in case you become unable to communicate for yourself. Advance directives let your wishes be known to family, friends, and health care providers. Discussing and writing advance directives should happen over time rather than all at once. Advance directives can be changed and updated at any time. There are different types of advance directives, such as: ? Medical power of collections attorney. ? Living will. ? Do not resuscitate (DNR) order or do not attempt resuscitation (DNAR) order. Health care proxy and medical power of collections attorney A health care proxy is also called a health care agent. This person is appointed to make medical decisions for you when you are unable to make decisions for yourself. Generally, people ask a trusted friend or family member to act as their proxy and represent their preferences. Make sure you have an agreement with your trusted person to act as your proxy. A proxy may have to make a medical decision on your behalf if your wishes are not known. A medical power of collections attorney, also called a durable power of collections attorney for health care, is a legal document that names your health care proxy. Depending on the laws in your state, the document may need to be: ? Signed. ? Notarized. ? Dated. ? Copied. ? Witnessed. ? Incorporated into your medical record. You may also want to appoint a trusted person to manage your money in the event you are unable to do so. This is called a durable power of collections attorney for finances. It is a separate legal document from the durable power of collections attorney for health care. You may choose your health care proxy or someone different to act as your agent in money matters. If you do not appoint a proxy, or there is a concern that the proxy is not acting in your best interest, a court may appoint a guardian to act on your behalf. Living will A living will is a set of instructions that state your wishes about medical care when you cannot express them yourself. Health care providers should keep a copy of your living will in your medical record. You may want to give a copy to family members or friends. To alert caregivers in case of an emergency, you can place a card in your wallet to let them know that you have a living will and where they can find it. A living will is used if you become: ? Terminally ill. ? Disabled. ? Unable to communicate or make decisions. The following decisions should be included in your living will: ? To use or not to use life support equipment, such as dialysis machines and breathing machines (ventilators). ? Whether you want a DNR or DNAR order. This tells health care providers not to use cardiopulmonary resuscitation (CPR) if breathing or heartbeat stops. ? To use or not to use tube feeding. ? To be given or not to be given food and fluids. ? Whether you want comfort (palliative) care when the goal becomes comfort rather than a cure. ? Whether you want to donate your organs and tissues. A living will does not give instructions for distributing your money and property if you should pass away. DNR or DNAR A DNR or DNAR order is a request not to have CPR in the event that your heart stops beating or you stop breathing. If a DNR or DNAR order has not been made and shared, a health care provider will try to help any patient whose heart has stopped or who has stopped breathing. If you plan to have surgery, talk with your health care provider about how your DNR or DNAR order will be followed if problems occur. What if I do not have an advance directive? Some states assign family decision makers to act on your behalf if you do not have an advance directive. Each state has its own laws about advance directives. You may want to check with your health care provider, collections attorney, or state accounts receivable representative about the laws in your state. Summary ? Advance directives are legal documents that allow you to make decisions about your health care and medical treatment in case you become unable to communicate for yourself. ? The process of discussing and writing advance directives should happen over time. You can change and update advance directives at any time. ? Advance directives may include a medical power of collections attorney, a living will, and a DNR or DNAR order. This information is not intended to replace advice given to you by your health care provider. Make sure you discuss any questions you have with your health care provider. Document Revised: 06/27/2021 Document Reviewed: 06/27/2021 [employer] Patient Education ? 2022 [employer] Endocrinology Hypothyroidism Hypothyroidism is when the thyroid gland does not make enough of certain hormones. This is called an underactive thyroid. The thyroid gland is a small gland located in the lower front part of the neck, just in front of the windpipe (more content not included)... Normal [facility] Screenson 03-30-2024 Screens [id number] 5F#1.00TIFF [facility] Plan of Care - PT/OT/Speecho n 03-17-2024 Plan of Care - PT/OT/Speech [id number] 82#1.00TIFF [facility] Physician Orderon 11-11-2023 Physician Order [id number] 57#1.00TIFF [facility] Physician Referralon 024 Physician Referral [id number] 65#1.00TIFF Normal [facility] Medicine Office/Clini c Noteon 11-08-2023 Family Medicine Office/Clinic Note HPI Staff Giovanny is an 88 year old male presenting for acute visit Pain characteristics: Pain location: left knee Onset: 2 days ago Medication used: none pt states fell 2 months ago and wrapped it and was feeling better and now 2 days ago pain got worse with movement. Pain is sharp with movement. rates 8/10 with movement. History of Present Illness pt presents today for continued left knee pain Review of Systems PHQ Score Initial Depression Screen Score: 0 SCORE ROS - Provider Constitutional: no fever, no chills, no sweats, no fatigue Respiratory: no shortness of breath, no cough, no orthopnea, no wheezing. Cardiovascular: no chest pain, no palpitations, no edema. Neurologic: no headache, no dizziness, no numbness, no weakness. Physical Exam Vitals & Measurements HR: 88(Peripheral) RR: 18 BP: 132/84 SpO2: 96% HT: 67 in HT: 170 cm WT: 88.4 kg WT: 194.48 lb BMI: 30.59 General: alert, no acute distress ENMT: oral mucosa moist, no pharyngeal erythema or exudate Cardiovascular: regular rate and rhythm, normal peripheral perfusion Respiratory: Lungs CTA, respirations non labored Extremities: no deformity, no trauma Neurological: oriented x 4, LOC appropriate for age, CN II-XII intact, motor strength equal & normal bilaterally, speech normal limited ROM of left knee due to pain Assessment/Plan 1. Left knee pain (M25.562: Pain in left knee) pt fell couple weeks ago. x ray was negative. pt is having trouble with ADL's due to pain. walking has become very difficult for him. will order MRI and pain management evaluation. anti inflammatory also ordered and pt is finishing steroid this weekend. all questions answered. RTC 4 weeks Ordered: [facility] External Ambulatory Referral 2. History of recent fall (Z91.81: History of falling) pt fell a couple weeks ago. knee pain is worsening. having trouble walking due to the pain Ordered: [facility] External Ambulatory Referral 3. BMI 30.0-30.9,adult (Z68.30: Body mass index [BMI] 30.0-30.9, adult) BMI education complete Ordered: [facility] External Ambulatory Referral 4. Non-smoker (Z78.9: Other specified health status) continue not smoking Ordered: [facility] External Ambulatory Referral Follow-up No qualifying data available Problem List/Past Medical History Ongoing Aortic regurgitation BMI 30.0-30.9,adult Chronic kidney disease, stage 2 (mild) Hemangioma History of medullary carcinoma of thyroid History of recent fall History of renal cell cancer Hypothyroid Left knee pain Lower extremity pain Lumbosacral radiculopathy Mild cognitive impairment Nephrolithiasis Non-smoker Historical CKD (chronic kidney disease) Thyroid cancer TIA Procedure/Surgical History Cataract extraction, [...] 04/03/2023 Tobacco Never (less than 100 in lifetime), Former smoker, quit more than 30 days ago Tobacco Use:. Never Smokeless Tobacco Use:. Household tobacco concerns: No., 11/08/2023 Family History Primary malignant neoplasm of lung: Father. Immunizations Vaccine Date Status Comments zoster vaccine, inactivated 08/06/2023 Recorded influenza virus vaccine, inactivated 08/06/2023 Recorded influenza virus vaccine, inactivated 08/14/2022 Recorded SARS-CoV-2 (COVID-19) mRNAMUL.ORD![id number] 08/14/2022 Recorded 2023-04-03: TPV80 influenza virus vaccine, inactivated 08/25/2021 Recorded SARS-CoV-2 (COVID-19) mRNA BNT-162b2 vax 08/25/2021 Recorded SARS-CoV-2 (COVID-19) mRNA-1273 vaccine 12/06/2020 Recorded SARS-CoV-2 (COVID-19) mRNA-1273 vaccine 11/08/2020 Recorded Normal [facility] Comment on above: Result Comment: Elec tronically Signed By: Sedrick ARMANDO, Shelley Rodriguez\.br\Date and Time Signed: 11/08/23 15:02 EST ED Note-Physicianon 10-31-19 24 ED Note-Physician [id number] 23#1.00TIFF Normal [facility] RAD - MISCon 10-31-2023 ED [facility] [id number] E#1.00TIFF Normal [facility] ED Note-Physicianon 10-09-19 24 ED Note-Physician [id number] 8C#1.00TIFF Normal [facility] RAD - MISCon 10-03-2023 ED [facility] [id number] 24#1.00TIFF [facility] Pre-Visit Planningon 023 Pre-Visit Planning -- From: [...] *No additional lab results to review in [employer]. Based on your medical judgment, can you [...] feel free to contact me at extension [phone]. Thank you! Josefa Phillips LPN -- From: Shelley Goss To: Josefa Phillips; Sent: 08/15/2023 09:21:27 EST Subject: RE: Pre-Visit Planning Caller Name: GIOVANNY ANGULO; Caller Number: , M , B chronic kidney disease, stage 2 Normal [address] [facility] Family Medicine Office/Clini c Noteon 08-13-2023 Family [...] ago states every Saturday they go to [place] and then shop at [employer] and due to his legs he sits [...] to get worse. will order EMG at [facility] in [place] office. he has an appointment with them tomorrow to discuss his worsening memory loss. will order gabapentin as well. all questions answered. Will call pt with EMG results. Ordered: gabapentin, 300 mg = 1 cap(s), Oral, TID, # 90 cap(s), Refills(s) 0, Pharmacy: [id number], 170, cm, 08/13/23 9:58:00 EST, Height/Length Dosing, 90, kg, 08/13/23 9:58:00 EST, Weight Dosing EMG Bilateral Lower Extremity (BLE) 2. Lumbosacral radiculopathy (M54.17: Radiculopathy, lumbosacral region) see above Ordered: gabapentin, 300 mg = 1 cap(s), Oral, TID, # 90 cap(s), Refills(s) 0, Pharmacy: [id number], 170, cm, 08/13/23 9:58:00 EST, Height/Length [...] TID, # 90 cap(s), Refills(s) 0, Pharmacy: [facility]/pharmacy #[id number], 170, cm, 08/13/23 9:58:00 EST, Height/Length Dosing, 90, kg, 08/13/23 9:58:00 EST, Weight Dosing 4. BMI 31.0-31.9,adult (Z68.31: Body mass index [BMI] 31.0-31.9, adult) BMI education complete Ordered: gabapentin, 300 mg = 1 cap(s), Oral, TID, # 90 cap(s), Refills(s) 0, Pharmacy: [facility]/pharmacy #[id number], 170, cm, 08/13/23 9:58:00 EST, Height/Length Dosing, 90, kg, 08/13/23 9:58:00 EST, Weight Dosing EMG Bilateral Lower Extremity (BLE) 5. Non-smoker (Z78.9: Other specified health status) CONTINUE NOT SMOKING Ordered: gabapentin, 300 mg = 1 cap(s), Oral, TID, # 90 cap(s), Refills(s) 0, Pharmacy: [id number], 170, cm, 08/13/23 9:58:00 EST, Height/Length [...] 04/03/2023 Tobacco (more content not included)... Normal [facility] Comment on above: Result Comment: Elec tronically Signed By: Sedrick ARMANDO, Shelley Rodriguez\.br\Date and Time Signed: 08/13/23 10:31 EST XR RIBS LT PA Meghan 2 XR [...] MIXON Date: 2021-11-17 10:18 Normal [facility] Encounters Encounter Date Encounter Type Care Provider Facility Start: 03-18-2025 ambulatory CLAM SORTER Shelley Dubose Facil ity:[facility] Start: 04-20-2024 End: 04-20-2024 ambulatory Shelley Dubose Facility:[facility] Start: 04-20-2024 End: 04-20-2024 Lab Drop off Shelley Dubose [facility] Start: 04-20-2024 End: 04-20-2024 ambulatory PRABHA Dubose Facility:[facility] Start: 03-30-2024 End: 03-30-2024 ambulatory CLAM SORTER Shelley L Sedrick Facility:[facility] Start: 11-08-2023 End: 11-08-2023 ambulatory CLAM SORTER Shelley L Sedrick Facility:[facility] Start: 09-04-2023 ambulatory Shelley Alyx Sedrick Facili ty:[facility] Start: 08-13-2023 End: 08-13-2023 ambulatory CLAM SORTER Shelley L Sedrick Facility: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[id number] Shelley Sedrick [facility] Comment on above: Result Comment: 2022: TPV80 08-25-2021 influenza virus vaccine, unspecified formulation Shelley Sedrick [facility] 08-25-2021 SARS-CoV-2 (COVID-19 ) mRNA BNT-162b2 vax Shelley Sedrick [facility] 12-06-2020 SARS-CoV-2 (COVID-19 ) mRNA-1273 vaccine Shelley Sedrick [facility] 11-08-2020 SARS-CoV-2 (COVID-19 ) mRNA-1273 vaccine Shelley Sedrick [facility] Payers Date Payer Category Payer [employer] ( and others) [id number] 2023 Medicare [id number] 2023 Self-pay [id number] 18ed 1959 [employer] ( and others) [id number] 1959 Medicare [id number] 1935 Unknown [id number] 1935 Unknown [id number] 1935 Unknown [id number] 1935 Unknown [id number] 1935 Unknown [id number] 1935 Unknown [id number] 1935 Unknown [id number] 1935 Unknown [id number] Medicare Self Pay [id number] Unknown [id number] Social History Date Type Detail [facility] Start: 1935 Sex Assigned At Male [facility] Start: 04-20-2024 Tobacco smoking status Never s moked tobacco (finding) [facility] Tobacco smoking status Ex-smoker (finding ) [facility] Tobacco smoking status Never [facility] Sex Assigned At Male [facility] Goals Date Patient Goal Desired Activity /State Evaluation + Plan note Note Date & Type Note Facility Evaluation + Plan note Future Appointments Appointment Date:03/18/2025 09:30:00 AM Scheduled Provider: Location:[facility] Appointment Type: Medicare Wellness Subsequent [facility] Hospital course Narrative Note Date & Type Note Facility Hospital course Narrative No data available for this section [facility] Hospital Discharge instructions Note Date & Type Note Facility Hospital Discharge instructions No data available for this section [facility] Progress note Note Date & Type Note Facility Progress note No data available for this section [facility] Advance Directives No Advanced Directives Records Found Advance Directive Response Recorded Date/ Time Advance Directives No March 16 3:08pm Chief Complaint and Reason for Visit Chief Complaint Lumbar Radiculopathy Assessments No Assessments Information Available Summary Purpose Family History No Family History Records FoundNo Family History Records Found No data available for this section No Family History Records FoundNo Family History Records FoundNo Family History Records FoundNo Family History Records FoundNo Family History Records FoundNo Family History Records Found Additional Source Comments (unrecognized sect ion and content) No Status Records FoundNo Status Records FoundNo Status Records FoundNo Status Records FoundNo Status Records FoundNo Status Records FoundNo Status Records FoundNo Status Records Found INFORMATION SOURCE (unrecogn ized section and content) DATE CREATED AUTHOR 10/06/2022 [facility] DATE CREATED AUTHOR AUTHOR'S ORGANIZ ATION 09/06/2023 [facility] DATE CREATED AUTHOR AUTHOR'S ORGANIZ ATION 04/24/2024 [facility] DATE CREATED AUTHOR AUTHOR'S ORGANIZ ATION 04/28/2024 [facility] DATE CREATED AUTHOR AUTHOR'S ORGANIZ ATION 05/23/2024 [facility] Patient Care team naye lazaro (unrecognized section and content) Personnel Name: Shelley Goss Address: Address: [address] [place] [address]- FOR RECORDS PERTAINING TO PATIENTS WHO ARE [...] BE BASED ON THE PRIMARY CLINICAL RECORDS. [facility] provides no warranty or guarantee of the accuracy or completeness of information in this document.
== END 2024-06-09 09:37 | disposition home or self-care (01) ==
PROVIDERS: Emergency Provider Emergency Medicine; PCP Family Medicine
DX: M17.0 Bilateral primary osteoarthritis of knee (principal)
CPT/HCPCS: 96372; 99284; J1885

== ENCOUNTER 2024-06-22 09:30 | Outpatient (OUT) | payer MEDICARE, OTHER, SELFPAY ==
--- NOTE | 2024-06-22 | XR_ITS ---
[address] [address] Patient Name: GIOVANNY ANGULO MRN: [id number] date: 1935 Sex: M Assigned Patient Location: Current Patient Location: Accession/Order Number: [id number] Exam Date: 06/22/2024 10:00 Report Date: 06/22/2024 15:56 At the request of: ASHLEE DUNN Procedure: XR knee RHONA 4V EXAMINATION: XR knee RHONA 4V HISTORY: BILATERAL KNEE PAIN COMPARISON: No relevant comparison available. FINDINGS: RIGHT FINDINGS: BONES: No acute fracture or dislocation. Moderate to severe [minimal osteoarthritis with [id number] articulation of the medial compartment. Marginal osteophyte formation. SOFT TISSUES: Negative. No visible soft tissue swelling. OTHER: Negative. LEFT FINDINGS: BONES: No acute fracture or dislocation. Moderate to severe [minimal osteoarthritis with [id number] articulation of the medial compartment. Marginal osteophyte formation. SOFT TISSUES: Negative. No visible soft tissue swelling. OTHER: Negative. 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
--- OUTSIDE RECORDS SUMMARY | 2024-06-22 09:53 | XMS_ITS | CCD ---
Author Organization [facility] Inform ion Partnership [facility] Care Team Providers Care Medical Operations Supervisor Name Role Phone Sue Dillon Primary Care [...] Unavailable Sedrick, Shelley Rodriguez Primary Care Physician Sedrick, Shelley Rodriguez Attending Unavailable Sedrick, Shelley L Admitting Unavailable Sedrick, BUSINESS LAWYER Shelley Michael Attending Unavailable Sedrick, BUSINESS LAWYER Shelley L Attending Unavailable Sedrick, BUSINESS LAWYER Shelley L Attending Unavailable Sedrick, BUSINESS LAWYER Shelley L Attending Unavailable Sedrick, BUSINESS LAWYER Shelley L Admitting Unavailable Sedrick, BUSINESS LAWYER Shelley L Attending Unavailable Sedrick, BUSINESS LAWYER Shelley L Attending Unavailable Unavailable Unavailable Unavailable Medications Current Medications Medication Drug Class(es) Dates Sig (Normalized) Sig (Original) levothyroxine sodium 0.125 mg oral tablet (1 source) l-Thyroxine Start: 04-14-2024 take 1 tablet by mouth once daily levothyroxine 125 mcg (0.125 mg) Tab See Instructions, TAKE 1 TABLET BY MOUTH EVERY DAY, # 90 tab(s), Refills(s) 3, Pharmacy: [id number], 168, cm, 03/30/24 11:14:00 EDT, Height/Length Dosing, [...] 11-20-2021 Episodic Other aftercare (1 source) 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; Translations: [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 DRUG THERAPY] Onset: 11-20-2021 Episodic Other [...] Basophils/100 WBC (Bld) 0.7 % Normal 0.0-2.0 [facility] Comment on above: Performed By: #### 2 [id number] #### [facility] [address] [place] [address] Basophils/Leukocytes Auto (Bld) [Pure # fraction] 0.0 E9/L Normal 0.0-0.2 [facility] Comment on above: Performed By: #### 2 [id number] #### [facility] [address] [place] [address] Eosinophils (Bld) [#/Vol] 0.1 E9/L Normal 0.0-0.5 [facility] Comment on above: Performed By: #### 2 [id number] #### [facility] [address] [place] [address] Eosinophils/100 WBC (Bld) 1.6 % Normal 0.0-8.0 [facility] Comment on above: Performed By: #### 2 277606 #### [facility] [address] [place] [address] Erythrocyte distribution width (RBC) [Ratio] 13.8 % Normal 10.9-14.2 [facility] Comment on above: Performed By: #### 2 664213 #### [facility] [address] [place] [address] Hematocrit (Bld) [Volume fraction] 41.2 % Normal 37.7-49.0 [facility] Comment on above: Performed By: #### 2 874197 #### [facility] [address] [place] [address] Hemoglobin (Bld) [Mass/Vol] 14.4 g/dL Normal 13.5-17.5 [facility] Comment on above: Performed By: #### 2 997177 #### [facility] [address] [place] [address] Lymphocytes (Bld) [#/Vol] 1.0 E9/L Normal 1.0-4.0 [facility] Comment on above: Performed By: #### 2 962784 #### [facility] [address] [place] [address] Lymphocytes/100 WBC (Bld) 17.9 % Normal 14.0-50.0 [facility] Comment on above: Performed By: #### 2 332009 #### [facility] [address] [place] [address] MCH (RBC) [Entitic mass] 34.7 pg High 27.0-34.0 [facility] Comment on above: Performed By: #### 2 359257 #### [facility] [address] [place] [address] MCHC (RBC) [Mass/Vol] 35.1 g/dL Normal 31.4-36.0 [facility] Comment on above: Performed By: #### 2 605175 #### [facility] [address] [place] [address] MCV (RBC) [Entitic vol] 98.9 fL Normal 80.0-100.0 [facility] Comment on above: Performed By: #### 2 869557 #### [facility] [address] [place] [address] Monocytes (Bld) [#/Vol] 0.6 E9/L Normal 0.2-1.0 [facility] Comment on above: Performed By: #### 2 007860 #### [facility] [address] [place] [address] Neutrophils (Bld) [#/Vol] 4.0 E9/L Normal 2.0-7.5 [facility] Comment on above: Performed By: #### 2 204672 #### [facility] [address] [place] [address] Neutrophils/100 WBC (Bld) 68.7 % Normal 36.0-75.0 [facility] Comment on above: Performed By: #### 2 808591 #### [facility] [address] [place] [address] Platelet 172.0 E9/L Normal 150.0-500.0 [facility] Comment on above: Performed By: #### 2 752444 #### [facility] [address] [place] [address] Platelet mean volume (Bld) [Entitic vol] 8.3 fL Normal 6.4-10.8 [facility] Comment on above: Performed By: #### 2 831869 #### [facility] [address] [place] [address] RBC (Bld) [#/Vol] 4.2 E12/L Low 4.3-5.9 [facility] Comment on above: Performed By: #### 2 324030 #### [facility] [address] [place] [address] WBC corrected for nucl RBC Auto (Bld) [#/Vol] 5.8 E9/L Normal 4.0-11.0 [facility] Comment on above: Performed By: #### 2 269927 #### [facility] [address] [place] [address] CHEMISTRYOrdered By: SYSTEM SYSTEM on 04-20-2024 Albumin [...] 04-20-2024 Albumin [Mass/Vol] 3.7 g/dL Normal 3.3-5.0 [facility] Comment on above: Performed By: #### 2 175305 #### [facility] [address] [place] [address] Albumin/Globulin (S) [Mass conc ratio] 1.3 Normal 1.1-2.2 [facility] Comment on above: Performed By: #### 2 225375 #### [facility] [address] [place] [address] ALP [Catalytic activity/Vol] 57 Int._Unit/L Normal 21-98 [facility] Comment on above: Performed By: #### 2 031542 #### [facility] [address] [place] [address] ALT No additional P-5'-P [Catalytic activity/Vol] 13 Int._Unit/L Normal 6-46 [facility] Comment on above: Performed By: #### 2 729266 #### [facility] [address] [place] [address] Anion gap [Moles/Vol] 10 mmol/L Normal 6-16 [facility] Comment on above: Performed By: #### 2 402932 #### [facility] [address] [place] [address] AST [Catalytic activity/Vol] 21 Int._Unit/L Normal 5-43 [facility] Comment on above: Performed By: #### 2 278107 #### [facility] [address] [place] [address] Bilirubin [Mass/Vol] 1.0 mg/dL Normal 0.0-1.1 [facility] Comment on above: Performed By: #### 2 060391 #### [facility] [address] [place] [address] Calcium [Mass/Vol] 9.1 mg/dL Normal 8.9-11.1 [facility] Comment on above: Performed By: #### 2 484842 #### [facility] [address] [place] [address] Chloride [Moles/Vol] 106 mmol/L Normal 101-111 [facility] Comment on above: Performed By: #### 2 276061 #### [facility] [address] [place] [address] CO2 [Moles/Vol] 24 mmol/L Normal 21-31 [facility] Comment on above: Performed By: #### 2 276637 #### [facility] [address] [place] [address] Creatinine [Mass/Vol] 1.0 mg/dL Normal 0.5-1.3 [facility] Comment on above: Performed By: #### 2 479779 #### [facility] [address] [place] [address] Globulin (S) [Mass/Vol] 2.9 g/dL Normal 1.4-4.0 [facility] Comment on above: Performed By: #### 2 028706 #### [facility] [address] [place] [address] Glucose [Mass/Vol] 129 mg/dL Normal 55-199 [facility] Comment on above: Performed By: #### 2 122644 #### [facility] [address] [place] [address] Potassium [Moles/Vol] 4.4 mmol/L Normal 3.5-5.3 [facility] Comment on above: Performed By: #### 2 148333 #### [facility] [address] [place] [address] Protein [Mass/Vol] 6.6 g/dL Normal 6.0-7.8 [facility] Comment on above: Performed By: #### 2 919712 #### [facility] [address] [place] [address] Sodium [Moles/Vol] 136 mmol/L Normal 135-145 [facility] Comment on above: Performed By: #### 2 600748 #### [facility] [address] [place] [address] Urea nitrogen [Mass/Vol] 22 mg/dL High 5-21 [facility] Comment on above: Performed By: #### 2 306100 #### [facility] [address] [place] [address] Urea nitrogen/Creatinine [Mass ratio] 22 No Units High 10-20 [facility] Comment on above: Performed By: #### 2 598917 #### [facility] [address] [place] [address] Family Medicine Office/Clini c Noteon 07-15-2024 Family Medicine Office/Clinic Note Family Medicine Office/Clinic Note [facility] Staff Giovanny is a 89 year [...] hyperlipidemia Historic (more content not included)... Normal [facility] Comment on above: Result Comment: Elec tronically [...] 04-20-2024 Cholesterol [Mass/Vol] 163 mg/dL Normal 120-200 [facility] Comment on above: Performed By: #### 2 862133 #### [facility] [address] [place] [address] Cholesterol in HDL [Mass/Vol] 34 mg/dL Invalid Interpretation Code [facility] Comment on above: Result Comment: '>= 60 LOW RISK' '<= 40 HIGH RISK' Performed By: #### 2 204905 #### [facility] [address] [place] [address] Cholesterol in LDL [Mass/Vol] 101 mg/dL Normal <=129 [facility] Comment on above: Performed By: #### 2 932717 #### [facility] [address] [place] [address] Cholesterol in VLDL [Mass/Vol] 34 mg/dL Normal 7-40 [facility] Comment on above: Performed By: #### 2 476879 #### [facility] [address] [place] [address] Triglyceride [Mass/Vol] 170 mg/dL High <=149 [facility] Comment on above: Performed By: #### 2 039308 #### [facility] [address] [place] [address] TSH With T4fr Reflexon 04-20 TSH Qn 0.86 m[IU]/L Normal 0.34-5.60 [facility] Comment on above: Order Comment: Farooq hurley from [facility] called and she accidentally logged this into [facility]. I logged it back into [facility] for her.04/20/2024 10:39:48 EDT [id number] Performed By: #### 1 [id number] #### [facility] [address] [place] [address] eGFRon 04-20-2024 eGFR 72 mL/min/1.73 m2 Normal >=59 [facility] Comment on above: Order Comment: Order added by Discern Expert. Performed By: #### 1 [id number] #### [facility] [address] [place] [address] Ambulatory Visit Summaryon 0 03-30-2024 Ambulatory Visit [...] 10:00 AM EDT With: Shelley Goss Where: [facility] Invalid Interpretation Code [address] [place] [address]- \.br\ You Need to Complete the Following\.br\ TSH With T4fr Reflex, Blood, Routine collect, 04/05/24, Order for future visit, Lab Collect, Annual visit for general adult medical examination without abnormal findings [facility] Consultation Noteon 03-30-20 Consultation Note [id number] 65#1.00TIFF Normal [facility] Family Medicine Office/Clini c Noteon 03-30-2024 Family [...] of clutter to prevent tripping and/or falling. [place] Advance Directives reviewed. Patient does not have [...] were ordered. Labs to be completed with [facility]. No concerns with bowel/ bladder. Colonoscopy: Aged [...] memory. Follows with [facility] in [place] every 3 months. Last office visit 11/2023. [...] Chronic Kidney Disease Chronic Kidney Disease, Adult, Rvlp-hw-Acgy Advance Directive Problem List/Past Medical History Ongoing [...] 3 refill (more content not included)... Normal [facility] Comment on above: Result Comment: Elec tronically Signed By: Shelley Goss\.br\Date and Time Signed: 03/30/24 12:35 EDT\.br\Electronically Co-Signed By: Brittney Scott LPN\.br\Date and Time Co-Signed: 03/30/24 11:37 EDT Lab Reportson 03-30-2024 Lab Reports [id number] C#1.00TIFF Normal [facility] Patient Educationon 03-30-20 Patient Education Caregiving Advance [...] directives, such as: ? Medical power of attorney recruiter. ? Living will. ? Do not resuscitate (DNR) order or do not attempt resuscitation (DNAR) order. Health care proxy and medical power of attorney recruiter A health care proxy is also called [...] are not known. A medical power of attorney recruiter, also called a durable power of attorney recruiter for health care, is a legal document [...] This is called a durable power of attorney recruiter for finances. It is a separate legal document from the durable power of attorney recruiter for health care. You may choose your [...] to check with your health care provider, attorney recruiter, or state civil rights representative about the laws in your state. [...] directives may include a medical power of attorney recruiter, a living will, and a DNR or DNAR order. This information is not intended to replace advice given to you by your health care provider. Make sure you discuss any questions you have with your health care provider. Document Revised: 06/27/2021 Document Reviewed: 06/27/2021 [employer] Patient Education ? 2022 [employer]. Endocrinology Hypothyroidism Hypothyroidism is when the thyroid gland does not make enough of certain hormones. This is called an underactive thyroid. The thyroid gland is a small gland located in the lower front part of the neck, just in front of the windpipe (more content not included)... Normal [facility] Screenson 03-30-2024 Screens [id number] 5F#1.00TIFF [facility] Plan of Care - PT/OT/Speecho n 03-17-2024 Plan of Care - PT/OT/Speech [id number] 82#1.00TIFF [facility] Physician Orderon 11-11-2023 Physician Order [id number] 57#1.00TIFF [facility] Physician Referralon 024 Physician Referral [id number] 65#1.00TIFF Normal [facility] Medicine Office/Clini c Noteon 11-08-2023 Family Medicine [...] all questions answered. RTC 4 weeks Ordered: [facility] External Ambulatory Referral 2. History of recent fall (Z91.81: History of falling) pt fell a couple weeks ago. knee pain is worsening. having trouble walking due to the pain Ordered: [facility] External Ambulatory Referral 3. BMI 30.0-30.9,adult (Z68.30: Body mass index [BMI] 30.0-30.9, adult) BMI education complete Ordered: [facility] External Ambulatory Referral 4. Non-smoker (Z78.9: Other specified health status) continue not smoking Ordered: [facility] External Ambulatory Referral Follow-up No qualifying data [...] virus vaccine, inactivated 08/14/2022 Recorded SARS-CoV-2 (COVID-19) mRNAMUL.[id number] 08/14/2022 Recorded 2023-04-03: TPV80 influenza virus vaccine, inactivated 08/25/2021 Recorded SARS-CoV-2 (COVID-19) mRNA BNT-162b2 vax 08/25/2021 Recorded SARS-CoV-2 (COVID-19) mRNA-1273 vaccine 12/06/2020 Recorded SARS-CoV-2 (COVID-19) mRNA-1273 vaccine 11/08/2020 Recorded Normal [facility] Comment on above: Result Comment: Elec tronically Signed By: Sedrick ARMANDO, Shelley Rodriguez\.br\Date and Time Signed: 11/08/23 15:02 EST ED Note-Physicianon 10-31-19 24 ED Note-Physician [id number] 23#1.00TIFF Normal [facility] RAD - MISCon 10-31-2023 [facility] [id number] E#1.00TIFF Normal [facility] ED Note-Physicianon 10-09-19 24 ED Note-Physician [id number] 8C#1.00TIFF Normal [facility] RAD - MISCon 10-03-2023 [facility] [id number] 24#1.00TIFF [facility] Pre-Visit Planningon 023 Pre-Visit Planning -- [...] feel free to contact me at extension [phone]. Thank you! Josefa Phillips LPN -- From: Shelley Goss To: Josefa Phillips; Sent: 08/15/2023 09:21:27 EST Subject: RE: Pre-Visit Planning Caller Name: GIOVANNY ANGULO; Caller Number: , M , B chronic kidney disease, stage 2 Normal [address] [facility] Family Medicine Office/Clini c Noteon 08-13-2023 Family [...] ago states every Saturday they go to [place] and then shop at [employer] and due to his legs he sits [...] to get worse. will order EMG at [facility] in [place] office. he has an appointment with them tomorrow to discuss his worsening memory loss. will order gabapentin as well. all questions answered. Will call pt with EMG results. Ordered: gabapentin, 300 mg = 1 cap(s), Oral, TID, # 90 cap(s), Refills(s) 0, Pharmacy: [id number], 170, cm, 08/13/23 9:58:00 EST, Height/Length Dosing, 90, kg, 08/13/23 9:58:00 EST, Weight Dosing EMG Bilateral Lower Extremity (BLE) 2. Lumbosacral radiculopathy (M54.17: Radiculopathy, lumbosacral region) see above Ordered: gabapentin, 300 mg = 1 cap(s), Oral, TID, # 90 cap(s), Refills(s) 0, Pharmacy: [id number], 170, cm, 08/13/23 9:58:00 EST, Height/Length [...] TID, # 90 cap(s), Refills(s) 0, Pharmacy: [facility]/pharmacy #[id number], 170, cm, 08/13/23 9:58:00 EST, Height/Length Dosing, 90, kg, 08/13/23 9:58:00 EST, Weight Dosing 4. BMI 31.0-31.9,adult (Z68.31: Body mass index [BMI] 31.0-31.9, adult) BMI education complete Ordered: gabapentin, 300 mg = 1 cap(s), Oral, TID, # 90 cap(s), Refills(s) 0, Pharmacy: [facility]/pharmacy #[id number], 170, cm, 08/13/23 9:58:00 EST, Height/Length Dosing, 90, kg, 08/13/23 9:58:00 EST, Weight Dosing EMG Bilateral Lower Extremity (BLE) 5. Non-smoker (Z78.9: Other specified health status) CONTINUE NOT SMOKING Ordered: gabapentin, 300 mg = 1 cap(s), Oral, TID, # 90 cap(s), Refills(s) 0, Pharmacy: [facility] #[id number], 170, cm, 08/13/23 9:58:00 EST, Height/Length [...] 04/03/2023 Tobacco (more content not included)... Normal [facility] Comment on above: Result Comment: Elec tronically [...] by: ASHLEE MIXON Date: 2021-11-17 10:18 Normal [facility] Encounters Encounter Date Encounter Type Care Provider Facility Start: 03-18-2025 ambulatory BUSINESS LAWYER Shelley Dubose Facil ity:[facility]3] Start: 04-20-2024 End: 04-20-2024 ambulatory Shelley Dubose Facility:[facility] Start: 04-20-2024 End: 04-20-2024 Lab Drop off Shelley Dubose [facility] Start: 04-20-2024 End: 04-20-2024 ambulatory PRABHA Dubose Facility:[facility]3] Start: 03-30-2024 End: 03-30-2024 ambulatory BUSINESS LAWYER Shelley L Sedrick Facility:[facility] [place] Start: 11-08-2023 End: 11-08-2023 ambulatory BUSINESS LAWYER Shelley L Sedrick Facility:[facility] Start: 09-04-2023 ambulatory Shelley Alyx Sedrick Facili ty:[facility] Start: 08-13-2023 End: 08-13-2023 ambulatory BUSINESS LAWYER Shelley L Sedrick Facility:[facility] Start: 08-31-2022 End: 10-05-2022 ambulatory SARAH MARTI Facility:[facility] Start: 11-17-2021 End: 11-17-[address] SUE DILLON Facility:[facility] Start: 03-22-2020 End: 03-22-2020 Patient encounter procedure Sue Dillon [facility] [address] Procedures Date Procedure Procedure Detail Performing Clinician Extraction of cataract Shelley Sedrick Malignant melanoma, 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) Shelley Sedrick Comment on above: face Thyroidectomy Shelley Sedrick Total nephrectomy Shelley Schwa b Immunizations Immunization Date Immunization Notes Care Provider Dylon jones 02-01-2024 zoster vaccine recombinant Shelley Sedrick [facility] 08-06-2023 influenza virus vaccine, unspecified formulation Shelley Sedrick [facility] 08-06-2023 zoster vaccine recombinant Shelley Sedrick [facility] 08-14-2022 influenza virus vaccine, unspecified formulation Shelley Sedrick [facility] 08-14-2022 SARS-CoV-2 (COVID-19 ) [id number].[id number] Shelley Sedrick [facility] Comment on above: Result Comment: 2022: TPV80 08-25-2021 influenza virus vaccine, unspecified formulation Shelley Sedrick [facility] 08-25-2021 SARS-CoV-2 (COVID-19 ) mRNA BNT-162b2 vax Shelley Sedrick [facility] 12-06-2020 SARS-CoV-2 (COVID-19 ) mRNA-1273 vaccine Shelley Sedrick [facility] 11-08-2020 SARS-CoV-2 (COVID-19 ) mRNA-1273 vaccine Shelley Sedrick [facility] Payers Date Payer Category Payer [employer] ( [employer] others) [id number] 2023 Medicare [id number] 2023 Self-pay [id number] 18ed 1959 [employer] ( and others) [id number] 1959 Medicare [id number] 1935 Unknown [id number] 1935 Unknown [id number] 1935 Unknown [id number] 1935 Unknown [id number] 1935 Unknown [id number] 1935 Unknown [id number] 1935 Unknown [id number] 1935 Unknown [id number] Medicare Self Pay [id number] Unknown [id number] Social History Date Type Detail Facility [facility] Start: 1935 Sex Assigned At Male [facility] Start: 04-20-2024 Tobacco smoking status Never s moked tobacco (finding) [facility] Tobacco smoking status Ex-smoker (finding ) [facility] Tobacco smoking status Never [facility] Sex Assigned At Male [facility] Goals Date Patient Goal Desired Activity /State Evaluation + Plan note Note Date & Type Note Facility Evaluation + Plan note Future Appointments Appointment Date:03/18/2025 09:30:00 AM Scheduled Provider: Location:[facility] Appointment Type: Medicare Wellness Subsequent [facility] Hospital course Narrative Note Date & Type Note Facility Hospital course Narrative No data available for this section [facility] Hospital Discharge instructions Note Date & Type Note Facility Hospital Discharge instructions No data available for this section [facility] Progress note Note Date & Type Note Facility Progress note No data available for this section [facility] Advance Directives No Advanced Directives Records Found [...] DATE CREATED AUTHOR AUTHOR'S ORGANIZ ATION 09/06/2023 [facility] DATE CREATED AUTHOR AUTHOR'S ORGANIZ ATION 04/24/2024 [facility] DATE CREATED AUTHOR AUTHOR'S ORGANIZ ATION 04/28/2024 [facility] DATE CREATED AUTHOR AUTHOR'S ORGANIZ ATION 05/23/2024 [facility] Patient Care team naye lazaro (unrecognized section and content) Personnel Name: Shelley Goss Address: Address: [address] [place] [address]- FOR RECORDS PERTAINING TO PATIENTS WHO ARE [...] BE BASED ON THE PRIMARY CLINICAL RECORDS. [facility]. provides no warranty or guarantee of the accuracy or completeness of information in this document.
== END 2024-06-22 09:31 | disposition home or self-care (01) ==
LOC: EC 09:30
PROVIDERS: PCP Family Medicine; Visit Provider Orthopaedic Surgery
DX: M25.562 Pain in left knee (principal); M25.561 Pain in right knee; M17.0 Bilateral primary osteoarthritis of knee
CPT/HCPCS: 73564

== ENCOUNTER 2025-02-03 12:29 | Outpatient (OUT) | payer MEDICARE, OTHER, SELFPAY ==
--- NOTE | 2025-02-03 | XR_ITS ---
The [address] [address] Patient Name: GIOVANNY ANGULO MRN: [id number] date: 1935 Sex: M Assigned Patient Location: [facility] Current Patient Location: [facility] Accession/Order Number: [id number] Exam Date: 02/03/2025 13:39 Report Date: 02/03/2025 13:40 At the request of: DAVID CARR Procedure: XR chest 2V Chest 2 views CLINICAL HISTORY: WHEEZING R06.2 OBESITY E66.9 COMPARISON: Chest 04/22/2024 FINDINGS: Heart normal in size. No consolidation pneumothorax pleural effusion or free air. XR/XR chest 2V IMPRESSION: NO ACUTE CARDIOPULMONARY ABNORMALITY. Impression dictated by: Jonas Siddiqui Jr.OLaurita 02/03/2025 1:40 PM Dictation Location: [place] [address] Electronically authenticated by: [id number] Y Date: 02/03/2025 13:40
== END 2025-02-03 12:30 | disposition home or self-care (01) ==
PROVIDERS: PCP Nurse Practitioner; Visit Provider Nurse Practitioner
DX: R06.2 Wheezing (principal); E66.9 Obesity, unspecified; Z78.9 Other specified health status; R05.9 Cough, unspecified; Z68.30 Body mass index [BMI] 30.0-30.9, adult
CPT/HCPCS: 71046